=== PATIENT | female | born 1945 | race Caucasian/White ===

== ENCOUNTER 2020-12-28 08:39 | Outpatient (CLI) | payer MEDICARE, OTHER, SELFPAY ==
--- NOTE | ~2020-12-28 | XR_ITS ---
EXAMINATION: XR abdomen/kub 1V INDICATION: Microscopic hematuria TECHNIQUE: Supine views of the abdomen were obtained on 2 radiographs. COMPARISON: CT from today FINDINGS: Bowel contents project over the kidneys limiting sensitivity for renal stones. The known ri ght kidney stone demonstrated on CT and is not identified. The bowel gas pattern is normal. The lung bases are clear. IMPRESSION: 1. Unremarkable abdominal radiographs. Reviewed, dictated and finalized at location A.
--- NOTE | ~2020-12-28 | CT_ITS ---
EXAMINATION: CT abdomen pelvis wo/w con DATE: 12/28/2020 09:39 INDICATION: Microscopic hematuria TECHNIQUE: Computed tomography (CT) of the abdomen and pelvis was performed without intravenous contr ast. CT of the abdomen and pelvis was then performed with a total of 130 mL Omnipaque 350 intravenous contrast using a double-bolus technique for simultaneous opacification of the renal parenchyma and r enal collecting system. The dose-length product (DLP) was 1312.09 mGy-cm. Automated exposure control and iterative reconstruction technique were employed. COMPARISON: None FINDINGS: Calcified nodules of the right lower lobe are consistent with old granulomatous disease. Th e heart size is normal. The liver, spleen, gallbladder, and adrenal glands are normal. There is a 2.3 x 1.5 cm cystic lesion in the head of the pancreas. No definite internal solid or enhancing componen t is identified. No definite communication with the main pancreatic duct is identified. There is a 4 mm nonobstructing stone of the right kidney lower pole. No suspicious renal or urothelial lesion is i dentified. There is no hydronephrosis or hydroureter. There is an 8 mm proteinaceous cyst of the left mid kidney. The left ureter is not opacified beyond its midportion however no definite obstructing l esion is seen. The bladder is unremarkable. No pathologically enlarged abdominal or pelvic lymph node s are identified. There is no free intraperitoneal gas or evidence of bowel obstruction. A moderate v olume of colonic stool is present. There is mild lumbar spondylosis. IMPRESSION: 1. Nonobstructing right nephrolithiasis. 2. Nonopacification of the mid and distal left ureter without definite obstructing lesion identified of unclear significance. 3. 2.3 cm cystic lesion in the head of the pancreas. The differential diagnosis includes pseudocyst, intraductal papillary mucinous neoplasm (IPMN), mucinous cystic neoplasm (MCN), and the less common s erous cystadenoma and neuroendocrine tumor. Correlate for history of pancreatitis. Follow-up CT or MRI without and with contrast in six months is recommended. Reviewed, dictated and finalized at location A. IMPRESSION: 1. Nonobstructing right nephrolithiasis. 2. Nonopacification of the mid and distal left ureter without definite obstruct ing lesion identified of unclear significance. 3. 2.3 cm cystic lesion in the head of the pancreas. The differential diagnosis includes pseudocyst, intraductal papillary mucinous neoplasm (IPMN), mucinous cystic neoplasm (MCN), and the less common serous cystadenoma and neuroendocrin e tumor. Correlate for history of pancreatitis. Follow-up CT or MRI without and with contrast in six months is recommended.
[2020-12-28 09:13] LABS: Estimated Glomerular Filt Rate > 60
== END 2020-12-28 08:40 | disposition home or self-care (01) ==
LOC: ANHIMG 08:43
PROVIDERS: PCP Nurse Practitioner Family; Visit Provider Nurse Practitioner Adult Health
DX: R31.29 Other microscopic hematuria (principal); N20.0 Calculus of kidney; K86.2 Cyst of pancreas
CPT/HCPCS: 74018; 74178; Q9967

== ENCOUNTER 2021-07-14 09:40 | Outpatient (CLI) | payer MEDICARE, OTHER, SELFPAY ==
--- NOTE | ~2021-07-14 | MR_ITS ---
EXAMINATION: MR abdomen wo/w con DATE: 07/14/2021 10:57 INDICATION: Cyst of pancreas. TECHNIQUE: Magnetic resonance imaging (MRI) of the abdomen was performed without and with 14 mL Multi [place] intravenous contrast. COMPARISON: CT abdomen and pelvis 12/28/2020 FINDINGS: The liver, gallbladder, spleen, and adrenal glands are normal. The pancreatic duct is normal in calib er. There is cystic dilatation of multiple pancreatic duct sidechains. There is a 10 mm cystic lesion in the head of the pancreas abutting the common bile duct. There is a 2.5 cm cyst in the head of the pancreas that communicates with the pancreatic duct. The adrenal glands and left kidney are normal. There is a 2 mm cyst in right kidney. There are no dilated loops of bowel. There are no pathologicall y enlarged lymph nodes. There is no free intraperitoneal fluid. IMPRESSION: 1. Cystic lesions in the pancreas measuring up to 2.5 cm, stable from 12/28/2020. The differential di agnosis includes pseudocyst, intraductal papillary mucinous neoplasm (IPMN), mucinous cystic neoplasm (MCN), serous cystadenoma, and neuroendocrine tumor. Abdomen MRI without and with contrast is recomm ended in 6 months. Reviewed, dictated and finalized at location A. IMPRESSION: 1. Cystic lesions in the pancreas measuring up to 2.5 cm, stable from 1. The differential diagnosis includes pseudocyst, intraductal papillary mucino us neoplasm (IPMN), mucinous cystic neoplasm (MCN), serous cystadenoma, and philippe roendocrine tumor. Abdomen MRI without and with contrast is recommended in 6 mo nths.
[2021-07-14 10:13] LABS: Estimated Glomerular Filt Rate > 60
== END 2021-07-14 09:41 | disposition home or self-care (01) ==
PROVIDERS: PCP Nurse Practitioner Family; Visit Provider Nurse Practitioner Family
DX: K86.2 Cyst of pancreas (principal); N28.1 Cyst of kidney, acquired
CPT/HCPCS: 74183; A9577

== ENCOUNTER 2022-05-18 10:27 | Outpatient (CLI) | payer MEDICARE, OTHER, SELFPAY ==
--- NOTE | ~2022-05-18 | MR_ITS ---
EXAMINATION: MR MRCP wo/w con/w 3D wo ind DATE: 05/18/2022 11:36 INDICATION: Pancreatic cyst TECHNIQUE: Magnetic resonance imaging (MRI) of the abdomen was performed without and with 14 mL Multi [place] intravenous contrast. Sequences included coronal T2-weighted SS-FSE, coronal T2-weighted FS SS- FSE, coronal T2-weighted FS FIESTA, axial T2-weighted FS FIESTA, axial T2-weighted FIESTA, sagittal T 2-weighted SS-FSE, axial T1-weighted dual-echo FSPGR, axial T2-weighted SS-FSE, axial T1-weighted LAV A, axial T2-weighted STIR FSE. Thick-slab T2-weighted FRFSE-XL images were obtained for magnetic reso nance cholangiopancreatography (MRCP). Rotating maximum intensity projection 3-D reconstructions of t he volumetric data were created by the technologist. Postcontrast sequences included a time course of axial T1-weighted LAVA. COMPARISON: 07/14/2021 FINDINGS: ABDOMEN MRI: Heart size is normal. No pericardial or pleural effusion. Liver, gallbladder, spleen, bilateral adren al glands and right kidney are normal. 6 mm nonenhancing T2 hyperintense left renal cyst. No interval change in the lobulated 2.5 cm cyst in the head of the pancreas are smaller 1 cm more posterior cyst also at the head of the pancreas. No solid enhancing soft tissue component such with either cyst. Pa ncreas is otherwise unremarkable. Visualized portion of the bowels are normal with no obstruction. No pathologically enlarged abdominal or upper pelvic lymphadenopathy. Bones are unremarkable with dawson l marrow signal throughout. ABDOMEN MRCP: No intrahepatic biliary ductal dilation. The common bile duct measures up to 4 mm maximal diameter at the proximal duct which is normal and which tapers distally with no evident mucosal irregularities o r choledocholithiasis. The smaller more posterior cyst abuts and may be contiguous with the distal co mmon bile duct. The larger cyst appears contiguous with the main pancreatic duct. There are few tiny dilated pancreatic ductal side branches at the neck and body of the pancreas suggesting sequela of ch ronic pancreatitis. IMPRESSION: 1. No interval change in a couple 2.5 cm and 1 cm simple appearing cystic lesions at the head of the pancreas with no concerning enhancing soft tissue component. The differential diagnosis includes pseu docyst, intraductal papillary mucinous neoplasm (IPMN), mucinous cystic neoplasm (MCN), and the less common serous cystadenoma and neuroendocrine tumor. Recommend additional 6 month follow-up pre and po stcontrast MRI. Reviewed, dictated and finalized at location L. IMPRESSION: 1. No interval change in a couple 2.5 cm and 1 cm simple appearing cystic lesio ns at the head of the pancreas with no concerning enhancing soft tissue compone nt. The differential diagnosis includes pseudocyst, intraductal papillary mucin ous neoplasm (IPMN), mucinous cystic neoplasm (MCN), and the less common serous cystadenoma and neuroendocrine tumor. Recommend additional 6 month follow-up p re and postcontrast MRI.
== END 2022-05-18 10:28 | disposition home or self-care (01) ==
LOC: ANHIMG 10:34
PROVIDERS: PCP Nurse Practitioner Family; Visit Provider Internal Medicine Hematology & Oncology
DX: K86.2 Cyst of pancreas (principal)
CPT/HCPCS: 74183; 76376; A9577

== ENCOUNTER 2022-07-21 12:32 | Outpatient (CLI) | payer MEDICARE, OTHER, SELFPAY ==
--- NOTE | 2022-07-21 | ECHO_ITS ---
Patient Info Name: Keyla eD La Torre Age: 76 years : 1945 Gender: Female Ht: 63 in Wt: 155 lbs BSA: 1.79 m2 HR: 69 bpm BP: 179 / 81 mmHg Heart Rhythm: Sinus Rhythm Technical Quality: Good Exam Date: 07/21/2022 12:54 PM Exam Location: [facility] Patient Status: Outpatient Admit Date: 07/21/2022 Staff Ordering Physician: Mario, Debbie Mccollum APRN Rig Operator: Juanis Hawthorne RDCS Attending Provider: Mario, Debbie Mccollum APRN Referring Physician: Mario CANALES; Exam Type: CA echo doppler color flow Study Info Indications R01.1 - Cardiac murmur, unspecified Complete two-dimensional, color flow and Doppler transthoracic echocardiogram is performed. Summary 1. Complete two-dimensional, color flow and Doppler transthoracic echocardiogram is performed. 2. Left ventricular chamber dimension is normal. 3. Left ventricular systolic function is normal, estimated at 65-70%. 4. The left ventricular diastolic function is grade I diastolic dysfunction. 5. E/e' 9 is minimally elevated. 6. Left atrial chamber dimension is mildly enlarged. 7. The mitral valve has moderately calcified annulus. 8. There is trace mitral valve regurgitation. 9. There is trace tricuspid valve regurgitation. 10. No pulmonary hypertension, estimated pulmonary arterial systolic pressure is 39 mmHg. Left Ventricle E/e' 9 is minimally elevated. Left ventricular chamber dimension is normal. Left ventricular systolic function is normal, estimated at 65-70%. The left ventricular diastolic function is grade I diastolic dysfunction. Right Ventricle Right ventricular systolic function is normal and with normal TAPSE 2.5 cm. Right ventricular chamber dimension is normal. Left Atria Left atrial chamber dimension is mildly enlarged. Right Atria Right atrial chamber dimension is normal. Aortic Valve The aortic valve is trileaflet. There is no aortic valve stenosis. There is no aortic valve regurgitation. Pulmonic Valve There is no pulmonic regurgitation. Mitral Valve The mitral valve has moderately calcified annulus. There is no mitral valve stenosis. There is trace mitral valve regurgitation. Tricuspid Valve There is trace tricuspid valve regurgitation. No pulmonary hypertension, estimated pulmonary arterial systolic pressure is 39 mmHg. Pericardium/Pleural There is no pericardial effusion. Inferior Vena Cava Normal inferior vena cava with >50% collapse upon inspiration consistent with normal right atrial pressure, 5 mmHg. Aorta The aortic root size at the sinus of Valsalva is normal. Left Ventricular Outflow Tract Name Value Normal LVOT 2D LVOT Diameter 1.8 cm LVOT Doppler LVOT Peak Gradient 6 mmHg LVOT Mean Gradient 2 mmHg LVOT VTI 31 cm LVOT VTI/AV VTI Ratio 0.8 LVOT Stroke Volume 80 ml LVOT CO 4.3 l/min LVOT CI 2.4 l/min/m2 Pulmonic Valve Name Value Normal
== END 2022-07-21 12:33 | disposition home or self-care (01) ==
PROVIDERS: PCP Nurse Practitioner Family; Visit Provider Nurse Practitioner Family
DX: R01.1 Cardiac murmur, unspecified (principal)
CPT/HCPCS: 93306

== ENCOUNTER 2022-12-05 08:39 | Outpatient (CLI) | payer MEDICARE, OTHER, SELFPAY ==
--- NOTE | ~2022-12-05 | MR_ITS ---
EXAMINATION: MR MRCP wo/w con/w 3D wo ind DATE: 12/05/2022 09:49 INDICATION: Pancreatic cyst. TECHNIQUE: Magnetic resonance imaging (MRI) of the abdomen was performed without and with 14 mL Multi [place] intravenous contrast. Sequences included coronal T2-weighted FS FSE, coronal T2-weighted FSE, a xial T1-weighted LAVA, coronal FS FIESTA, axial dual-echo T1-weighted SPGR, coronal lava-FLEX, sagitt al T2-weighted FSE, axial T2-weighted FSE, and axial DWI. Thick-slab T2-weighted FSE images were obta ined for magnetic resonance cholangiopancreatography (MRCP). Maximum intensity projection 3-D reconst ructions of the volumetric data were created by the technologist. Postcontrast sequences included cor onal LAVA-flex and time course of axial T1-weighted LAVA. COMPARISON: Abdomen MRI 05/18/2022, 07/14/2021, CT abdomen and pelvis 12/28/2020 FINDINGS: ABDOMEN MRI: The liver, gallbladder, spleen, adrenal glands, and left kidney are normal. There is a 4 mm cyst in right kidney. In the head of the pancreas, there is a 2.4 cm cystic lesion that communica tucker with the main pancreatic duct. The main pancreatic duct is normal in caliber. In the pancreas, there is a 10 mm cystic lesion without visible communication with the main pancreati c duct. There are no dilated loops of bowel. There are no pathologically enlarged lymph nodes. There is no free intraperitoneal fluid. ABDOMEN MRCP: The common duct is normal and measures 4 mm. IMPRESSION: 1. Cystic lesions of the pancreas measuring up to 2.4 cm without high-risk features, stable from 07/14. The differential diagnosis includes pseudocyst, intraductal papillary mucinous neoplasm (IPMN) , mucinous cystic neoplasm (MCN), serous cystadenoma, and neuroendocrine tumor. Abdomen MRI without a nd with contrast is recommended in 6 months. Reviewed, dictated and finalized at location E. IMPRESSION: 1. Cystic lesions of the pancreas measuring up to 2.4 cm without high-risk feat ures, stable from 07/14/2021. The differential diagnosis includes pseudocyst, in traductal papillary mucinous neoplasm (IPMN), mucinous cystic neoplasm (MCN), s erous cystadenoma, and neuroendocrine tumor. Abdomen MRI without and with contr ast is recommended in 6 months.
== END 2022-12-05 08:40 | disposition home or self-care (01) ==
PROVIDERS: PCP Nurse Practitioner Family; Visit Provider Internal Medicine Hematology & Oncology
DX: K86.2 Cyst of pancreas (principal)
CPT/HCPCS: 74183; 76376; A9577

== ENCOUNTER 2023-09-10 09:26 | Outpatient (CLI) | payer MEDICARE, OTHER, SELFPAY ==
[2023-09-10 09:46] LABS: Basophils Percent Auto 0.8 % (0.2-1.2); Eosinophils Absolute Auto 0.1 K/mm3 (0-0.3); Eosinophils Percent Auto 1.2 % (0-4.4); Hematocrit 40.5 % (37.0-47.0); Hemoglobin 13.5 g/dL (12.0-15.0); Immature Granulocyte Absolute 0.01 K/mm3 (0.00-0.031); Immature Granulocyte Percent A 0.2 % (0-0.5); Lymphocytes Absolute Auto 1.13 K/mm3 (0.9-3.2); Lymphocytes Percent Auto 22.6 % (18.3-44.2); Mean Corpuscular HGB Conc 33.3 g/dl (32-36); Mean Corpuscular Hemoglobin 29.7 pg (26-34); Mean Corpuscular Volume 89.2 fl (80-100); Mean Platelet Volume 10.2 fl (7.4-10.4); Monocytes Absolute Auto 0.3 K/mm3 (0.1-0.6); Monocytes Percent Auto 6.8 % (2.6-8.5); Neutrophils Absolute Auto 3.4 K/mm3 (1.3-6.7); Neutrophils Percent Auto 68.4 % (45.5-73.1); Platelet Count Result 275 k/mm3 (150-375); Red Blood Count 4.54 M/mm3 (4.2-5.4)
[2023-09-10 09:51] LABS: Blood Urea Nitrogen 18 mg/dL (8-26); Carbon Dioxide 28 mmol/L (22-30); Chloride 102 mmol/L (98-109); Estimated Glomerular Filt Rate > 60; Glucose 108 mg/dL (70-105); Ionized Calcium (POC) 1.17 mmol/L (1.11-1.31); Potassium 4.1 mmol/L (3.5-4.9); Sodium 140 mmol/L (138-146)
[2023-09-10 10:39] LABS: Alanine Aminotransferase 22 U/L (6-35); Albumin Level 4.6 g/dL (3.5-5.1); Alkaline Phosphatase 91 U/L (38-126); Anion Gap 12 mmol/L (4-12); Aspartate Amino Transferase 27 U/L (14-36); Bilirubin,Total 0.6 mg/dL (0.2-1.3); Blood Urea Nitrogen 17 mg/dL (7-17); Calcium 9.7 mg/dL (8.4-10.2); Carbon Dioxide 27 mmol/L (22-30); Chloride 100 mmol/L (98-107); Estimated Glomerular Filt Rate > 60; Glucose 102 mg/dL (65-110); Potassium 4.2 mmol/L (3.4-5.0); Sodium 139 mmol/L (137-145)
== END 2023-09-10 09:27 | disposition home or self-care (01) ==
LOC: ANHLAB 09:29
PROVIDERS: PCP Nurse Practitioner Family; Visit Provider Internal Medicine Hematology & Oncology
DX: K86.2 Cyst of pancreas (principal)
CPT/HCPCS: 36415; 80047; 80053; 85025

== ENCOUNTER 2024-04-17 13:40 | Outpatient (CLI) | payer MEDICARE, OTHER, SELFPAY ==
--- NOTE | ~2024-04-17 | MM_ITS ---
EXAMINATION: MM screening isabel BI w yrn HISTORY: Screening TECHNIQUE: Craniocaudal and mediolateral oblique 3-D tomosynthesis images were obtained and synthetic 2-D images were generated. CAD analysis was submitted and interpreted. COMPARISON: Comparison to multiple prior studies sequentially, with oldest reviewed study dated 12/03. BREAST PARENCHYMAL COMPOSITION: Not dense: There are scattered areas of fibroglandular density. FINDINGS: There is no evidence of suspicious mass, calcification, or architectural distortion to sugg est malignancy in either breast. There has been no suspicious interval change. IMPRESSION: 1. No mammographic evidence of malignancy. 2. Recommend routine screening mammography in one year. BI-RADS Category 1: Negative Reviewed, dictated and finalized at location B. [employer]
--- OUTSIDE RECORDS SUMMARY | 2024-04-17 13:44 | XMS_ITS | Data Portability ---
Author Organization [place] [employer], Main Office Address [address] [place] [address] Assessment Encounter Date Assessment Date Assessment LastModified by Organization Details LastModified Time 06/21/2022 06/21/2022 Cscope- 01/2021- tubular adenoma- repeat 01/2026 Mammogram- 12/2021 DEXA- 12/2020-osteopen ia [employer]- no longer doing 2/2 age Call office if worse, ER if life threatening illness RTC 4 months She voices understanding of plan and agrees [email or web address] Not available 06/17/2022 12:39:11 11/15/2022 11/15/2022 Cscope- 01/2021- tubular adenoma- repeat 01/2026 Mammogram- 12/2021 DEXA- 12/2020-osteopen ia [employer]- no longer doing 2/2 age Call office if worse, ER if life threatening illness RTC 4 months She voices understanding of plan and agrees [email or web address] Not available 11/15/2022 11:07:17 Plan of Treatment Reminders Order Date Submit Date Provider Last Modified By Organization Details Last Modified Time Details Appointments Any 15 2024 09:30A M Shaina Santos APRN Not available Not available Not available Lab hepatitis C virus Ab, serum 2023 024 TAMELA Not available 01/14/2024 16:02:12 CBC w/ auto diff 2023 024 TAMELA Not available 06/25/2023 22:41:27 CMP, serum or plasma 2023 024 TAMELA Not available 06/25/2023 22:41:27 TSH, serum or plasma 2023 024 TAMELA Not available 06/25/2023 22:41:27 T4, free, serum 2023 024 TAMELA Not available 06/25/2023 22:41:27 HbA1c (hemoglob in A1c), blood 2023 024 TAMELA Not available 06/25/2023 22:41:27 vitamin D, 25-hydrox y, total, serum 2023 024 TAMELA Not available 06/25/2023 22:41:28 vitamin B12 + folate, serum or blood 2023 024 TAMELA Not available 06/25/2023 22:41:28 lipid panel, serum 2023 024 TAMELA Not available 06/25/2023 22:41:28 CMP, serum or plasma 2022 023 TAMELA Not available 07/05/2022 14:05:22 CBC w/ auto diff 2022 023 TAMELA Not available 07/05/2022 12:55:15 urinalysi s complete, reflex culture 2022 023 Not available 07/06/2022 11:27:22 vitamin D, 25-hydrox y, total, serum 2022 023 Not available 07/06/2022 11:27:23 lipid panel, serum 2022 023 TAMELA Not available 07/13/2022 16:37:44 TSH, serum, reflex free T4 2022 023 Not available 07/06/2022 11:27:23 Referral None recorded. Procedures None recorded. Surgeries None recorded. Imaging MAMMO, screening , bilateral - due in December 20222022 023 Not available 03/14/2023 08:59:21 US, echocardi ogram 2022 023 [facility] (Cardiology [facility], [place], [address], 07/21/2022 16:32:55 Medication Orders enalapril maleate 10 mg tablet 2023 [id number], [address], [place], [place], [id number], 12/19/2023 10:59:13 hydrochlo rothiazid e 12.5 mg tablet 2023 [facility] #93154, [address], [place], [place], [id number], 12/19/2023 10:59:12 pravastat in 20 mg tablet 2023 [facility] #61535, [address], [place], [place], [id number], 12/19/2023 10:59:12 pravastat in 20 mg tablet 2023 024 [facility] #60023, [address], [place], [place], [id number], 06/13/2023 11:09:36 hydrochlo rothiazid e 12.5 mg tablet 2023 [facility] #56453, [address], [place], [place], [id number], 06/13/2023 11:09:36 enalapril maleate 10 mg tablet 2023 024 [facility] #12656, [address], [place], [place], [id number], 06/13/2023 11:09:38 lorazepam 0.5 mg tablet 2022 [email or web address] [address], [place], [place], [id number], 12/19/2023 10:34:03 Patient TargetsNo targets recorded. Patient Instructions Encounter Date Encounter Id Patient Instructions Last Modified By Organization Details Last Modified Time 11/15/2022 [id number] dementia rating scale-2* [email or web address] Not available 11/15/2022 13:20:40 depression screening* [email or web address] Not available 11/15/2022 13:20:40 multi-dimensiona l health assessment questionnaire* [email or web address] Not available 11/15/2022 13:20:40 advance directiv es: care instructions [email or web address] Not available 11/15/2022 13:20:40 advance care planning: care instructions [email or web address] Not available 11/15/2022 13:20:40 [place] Advance Directives [email or web address] Not available 11/15/2022 13:20:40 Personalized a lt Plan and Screening Recommendations Advance Directives - Do you have one? No You have indicated that you are capable of preparing your advance care directive Advance Directives - Do we have your advance directive on file in your health record? No, please bring in a copy at your earliest convenience Primary Prevention/Interven tion (prevents or decreases the chance of common diseases from occurring) Smoking Risk: Non Smoker Alcohol Misuse Screening: Negative Weight: Appropriate Physical activity: Appropriate physical activity minimum of 10-20 minutes of activity that causes mild breathlessness/day minimum of 20-30 minutes activity that causes mild breathlessness/day minimum of 30-40 minutes of activity that causes mild breathlessness/day Nutrition: Good Average Refer to attached handout Heart-Healthy Diet: After Your Visit Fall Risk (screened today): Low Refer to attached handout Preventing Falls: After your Visit Vaccines Pneumococcal: Ordered Recommended today Recommended today, but you have declined No further needed Influenza: Your next one in the fall of this year Chronic Disease Risks Stroke: Low Risk Intermediate Risk Heart Attack: Low risk Intermediate Risk Clogging of the Arteries: Low risk Intermediate Risk Diabetes: Low Risk Secondary Prevention/Interven tion (detects treatable diseases before they may cause symptoms, disability, or ) Breast Cancer Screening with mammogram: Your next mammogram: Ordered Cervical/Uterine/Ov sherita Cancer Screening: No screening necessary Osteoporosis Screening: Date Screening Last Performed: Colon Cancer Screening: Colonoscopy Date Screening Last Performed: Eye Disease Screening: Ordered Recommended today Dementia Risk: Low Depression Screening: Negative [email or web address] Not available 11/15/2022 13:20:38 06/13/2023 [id number] Follow up in 6 months Labs ordered Medication refills sent to pharmacy Not available 06/13/2023 11:09:22 12/19/2023 [id number] dementia rating scale-2* Not available 12/19/2023 10:59:05 multi-dimensiona l health assessment questionnaire* Not available 12/19/2023 10:59:06 care plan* Not available 12/18 10:59:06 advance directiv es: care instructions Not available 12/19/2023 10:59:06 advance care planning: care instructions Not available 12/19/2023 10:59:05 [place] Advance Directives Not available 12/19/2023 10:59:06 Follow up in 6 months Prescriptions sent to pharmacy Obtain lab Tests: Referral: Recommend: Tetanus vaccine Shingles vaccine Personalized Health Plan and Screening Recommendations Advance Directives - Do you have one? Yes Advance Directives - Do we have your advance directive on file in your health record? No, please bring in a copy at your earliest convenience Primary Prevention/Interven tion (prevents or decreases the chance of common diseases from occurring) Smoking Risk: Non Smoker Alcohol Misuse Screening: Negative Weight: Appropriate Overwei ght continue your current weight loss efforts try to lose 5% of your body weight try to lose 10% of your body weight Physical activity: Appropriate physical activity minimum of 10-20 minutes of activity that causes mild breathlessness/day minimum of 20-30 minutes activity that causes mild breathlessness/day Nutrition: Good Refer to attached handout Heart-Healthy Diet: After Your Visit Refer to attached handout DASH Diet: After Your Visit Fall Risk (screened today): Low Refer to attached handout Preventing Falls: After your Visit Vaccines Pneumococcal: Ordered Recommended today Recommended today, but you have declined No further needed Influenza: Ordered Chronic Disease Risks Stroke: Low Risk I have no recommendations Heart Attack: Low risk I have no recommendations Clogging of the Arteries: Low risk I have no recommendations Diabetes: Low Risk I have no recommendations Secondary Prevention/Interven tion (detects treatable diseases before they may cause symptoms, disability, or ) Breast Cancer Screening with mammogram: Cervical/Uterine/Ov sherita Cancer Screening: Your next PAP/pelvic in: 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 Results Created Date Observation Date Name Description Value Unit Range Abnormal Flag Note LastModifiedBy Organization Detail LastModifiedTime 07/06/1907/05/2022 CBC/C OMPLE TE BLD COUNT W/DIF F white blood cells 4.2 x10'3 /uL 4.2-10 .8 Not Available [facility] (Lab) [address] [place], [address], 07/05/2022 12:55:15 07/06/1907/05/2022 CBC/C OMPLE TE BLD COUNT W/DIF F red blood cells 4.39 x10'6 /uL 3.80-5 .20 Not Available [facility] (Lab) [address] [place], [address], 07/05/2022 12:55:15 07/06/1907/05/2022 CBC/C OMPLE TE BLD COUNT W/DIF F hemoglobin 13.1 g/dL 12.0-1 5.6 Not Available [facility] (Lab) [address] [place], [address], 07/05/2022 12:55:15 07/06/1907/05/2022 CBC/C OMPLE TE BLD COUNT W/DIF F hematocrit 40.0 % 35.7-4 5.7 Not Available [facility] (Lab) [address] [place], [address], 07/05/2022 12:55:15 07/06/19 23 07/05/2022 CBC/C OMPLE TE BLD COUNT W/DIF F mean red cell volume 91.1 fL 82.0-9 9.0 Not Available [facility] (Lab) [address] [place], [address], 07/05/2022 12:55:15 07/06/19 23 07/05/2022 CBC/C OMPLE TE BLD COUNT W/DIF F mean red cell hemoglobin 29.8 pg 27.0-3 3.0 Not Available [facility] (Lab) [address] [place], [address], 07/05/2022 12:55:15 07/06/19 23 07/05/2022 CBC/C OMPLE TE BLD COUNT W/DIF F mean RBC HGB concentratio n 32.8 g/dL 31.0-3 6.0 Not Available [facility] (Lab) [address] [place], [address], 07/05/2022 12:55:15 07/06/19 23 07/05/2022 CBC/C OMPLE TE BLD COUNT W/DIF F red cell distribution width 12.7 % 11.8-1 5.5 Not Available [facility] (Lab) [address] [place], [address], 07/05/2022 12:55:15 07/06/19 23 07/05/2022 CBC/C OMPLE TE BLD COUNT W/DIF F platelets 269 x10'3 /uL 150-40 0 Not Available [facility] (Lab) [address] [place], [address], 07/05/2022 12:55:15 07/06/19 23 07/05/2022 CBC/C OMPLE TE BLD COUNT W/DIF F mean platelet volume 10.9 fL 9.0-12 .4 Not Available [facility] (Lab) [address] [place], [address], 07/05/2022 12:55:15 07/06/1907/05/2022 CBC/C OMPLE TE BLD COUNT W/DIF F neutrophils 65.6 % 39.0-7 2.0 Not Available [facility] (Lab) [address] [place], [address], 07/05/2022 12:55:15 07/06/1907/05/2022 CBC/C OMPLE TE BLD COUNT W/DIF F lymphocytes 24.6 % 16.0-4 7.0 Not Available [facility] (Lab) [address] [place], [address], 07/05/2022 12:55:15 07/06/1907/05/2022 CBC/C OMPLE TE BLD COUNT W/DIF F monocytes 7.2 % 5.0-12 .0 Not Available [facility] (Lab) [address] [place], [address], 07/05/2022 12:55:15 07/06/1907/05/2022 CBC/C OMPLE TE BLD COUNT W/DIF F eosinophils 1.7 % 1.0-7. 0 Not Available [facility] (Lab) [address] [place], [address], 07/05/2022 12:55:15 07/06/1907/05/2022 CBC/C OMPLE TE BLD COUNT W/DIF F basophils 0.7 % 0.0-2. 0 Not Available [facility] (Lab) [address] [place], [address], 07/05/2022 12:55:15 07/06/1907/05/2022 CBC/C OMPLE TE BLD COUNT W/DIF F immature granulocytes 0.2 % 0.00-0 .50 Not Available [facility] (Lab) [address] [place], [address], 07/05/2022 12:55:15 07/06/19 23 07/05/2022 CBC/C OMPLE TE BLD COUNT W/DIF F neutrophils, absolute count 2.75 x10'3 /uL 1.5-8. 0 Not Available [facility] (Lab) [address] [place], [address], 07/05/2022 12:55:15 07/06/19 23 07/05/2022 CBC/C OMPLE TE BLD COUNT W/DIF F lymphocytes, absolute count 1.03 x10'3 /uL 1.07-3 .43 low Not Available [facility] (Lab) [address] [place], [address], 07/05/2022 12:55:15 07/06/19 23 07/05/2022 CBC/C OMPLE TE BLD COUNT W/DIF F monocytes, absolute count 0.30 x10'3 /uL 0.29-0 .99 Not Available [facility] (Lab) [address] [place], [address], 07/05/2022 12:55:15 07/06/1907/05/2022 CBC/C OMPLE TE BLD COUNT W/DIF F eosinophils, absolute count 0.07 x10'3 /uL 0.02-0 .53 Not Available [facility] (Lab) [address] [place], [address], 07/05/2022 12:55:15 07/06/19 23 07/05/2022 CBC/C OMPLE TE BLD COUNT W/DIF F basophils, absolute count 0.03 x10'3 /uL 0.01-0 .08 Not Available [facility] (Lab) [address] [place], [address], 07/05/2022 12:55:15 07/06/19 23 07/05/2022 CBC/C OMPLE TE BLD COUNT W/DIF F immature granulocytes ,absolute 0.01 x10'3 /uL 0.00-0 .05 Not Available [facility] (Lab) [address] [place], [address], 07/05/2022 12:55:15 07/06/19 23 07/05/2022 CBC/C OMPLE TE BLD COUNT W/DIF F nucleated red blood cells 0.0 % -0 Not Available [facility] (Lab) [address] [place], [address], 07/05/2022 12:55:15 07/06/19 23 07/05/2022 CBC/C OMPLE TE BLD COUNT W/DIF F NRBC# 0.00 x10'3 /uL Not Available [facility] (Lab) [address] [place], [address], 07/05/2022 12:55:15 07/06/19 23 07/05/2022 URINA LYSIS COMPL ETE/I RIS W/RFX color COLORL ESS Not Available [facility] (Lab) [address] [place], [address], 07/05/2022 13:06:11 07/06/19 23 07/05/2022 URINA LYSIS COMPL ETE/I RIS W/RFX appear CLEAR Not Available [facility] (Lab) [address] [place], [address], 07/05/2022 13:06:11 07/06/1907/05/2022 URINA LYSIS COMPL ETE/I RIS W/RFX specific gravity 1.006 1.001- 1.030 Not Available [facility] (Lab) [address] [place], [address], 07/05/2022 13:06:11 07/06/19 23 07/05/2022 URINA LYSIS COMPL ETE/I RIS W/RFX pH 5.5 pH_un its 5.0-9. 0 Not Available [facility] (Lab) [address] [place], [address], 07/05/2022 13:06:11 07/06/19 23 07/05/2022 URINA LYSIS COMPL ETE/I RIS W/RFX leukocytes NEGATI VE mami/u L negati ve- Not Available [facility] (Lab) [address] [place], [address], 07/05/2022 13:06:11 07/06/19 23 07/05/2022 URINA LYSIS COMPL ETE/I RIS W/RFX nitrite NEGATI VE negati ve- Not Available [facility] (Lab) [address] [place], [address], 07/05/2022 13:06:11 07/06/19 23 07/05/2022 URINA LYSIS COMPL ETE/I RIS W/RFX protein NEGATI VE mg/dL negati ve- Not Available [facility] (Lab) [address] [place], [address], 07/05/2022 13:06:11 07/06/19 23 07/05/2022 URINA LYSIS COMPL ETE/I RIS W/RFX glucose NORMAL mg/dL normal - Not Available [facility] (Lab) [address] [place], [address], 07/05/2022 13:06:11 07/06/19 23 07/05/2022 URINA LYSIS COMPL ETE/I RIS W/RFX ketones NEGATI VE mg/dL negati ve- Not Available [facility] (Lab) [address] [place], [address], 07/05/2022 13:06:11 07/06/19 23 07/05/2022 URINA LYSIS COMPL ETE/I RIS W/RFX urobilinogen NORMAL mg/dL normal - Not Available [facility] (Lab) [address] [place], [address], 07/05/2022 13:06:11 07/06/19 23 07/05/2022 URINA LYSIS COMPL ETE/I RIS W/RFX bilirubin NEGATI VE mg/dL negati ve- Not Available [facility] (Lab) [address] [place], [address], 07/05/2022 13:06:11 07/06/19 23 07/05/2022 URINA LYSIS COMPL ETE/I RIS W/RFX blood NEGATI VE mg/dL negati ve- Not Available [facility] (Lab) [address] [place], [address], 07/05/2022 13:06:11 07/06/19 23 07/05/2022 URINA LYSIS COMPL ETE/I RIS W/RFX white blood cells 0-8 /i??h pfi?? 0-8 Not Available [facility] (Lab) [address] [place], [address], 07/05/2022 13:06:11 07/06/19 23 07/05/2022 URINA LYSIS COMPL ETE/I RIS W/RFX red blood cells 0-4 /i??h pfi?? 0-4 Not Available [facility] (Lab) [address] [place], [address], 07/05/2022 13:06:11 07/06/19 23 07/05/2022 URINA LYSIS COMPL ETE/I RIS W/RFX bacteria OCCASI ONAL abnormal Not Available [facility] (Lab) [address] [place], [address], 07/05/2022 13:06:11 07/06/19 23 07/05/2022 URINA LYSIS COMPL ETE/I RIS W/RFX mucous OCCASI ONAL /i??l pfi?? abnormal Not Available [facility] (Lab) [address] [place], [address], 07/05/2022 13:06:11 07/06/19 23 07/05/2022 URINA LYSIS COMPL ETE/I RIS W/RFX squamous epithelial FEW /i??l pfi?? abnormal Not Available [facility] (Lab) [address] [place], [address], 07/05/2022 13:06:11 07/06/19 23 07/05/2022 COMPR EHENS GALE METAB OLIC PANEL sodium 134 mmol/ L 137-14 5 low Not Available [facility] (Lab) [address] [place], [address], 07/05/2022 14:05:28 07/06/19 23 07/05/2022 COMPR EHENS GALE METAB OLIC PANEL potassium 3.9 mmol/ L 3.5-5. 1 Not Available [facility] (Lab) [address] [place], [address], 07/05/2022 14:05:28 07/06/19 23 07/05/2022 COMPR EHENS GALE METAB OLIC PANEL chloride 99 mmol/ L 98-107 Not Available [facility] (Lab) [address] [place], [address], 07/05/2022 14:05:28 07/06/19 23 07/05/2022 COMPR EHENS GALE METAB OLIC PANEL carbon dioxide 28 mmol/ L 22-30 Not Available [facility] (Lab) [address] [place], [address], 07/05/2022 14:05:28 07/06/19 23 07/05/2022 COMPR EHENS GALE METAB OLIC PANEL anion gap 10.9 mmol/ L 14-22 low Not Available [facility] (Lab) [address] [place], [address], 07/05/2022 14:05:28 07/06/19 23 07/05/2022 COMPR EHENS GALE METAB OLIC PANEL glucose 105 mg/dL 70-99 high Not Available [facility] (Lab) [address] [place], [address], 07/05/2022 14:05:28 07/06/19 23 07/05/2022 COMPR EHENS GALE METAB OLIC PANEL BUN 15 mg/dL 8-19 Not Available [facility] (Lab) [address] [place], [address], 07/05/2022 14:05:28 07/06/19 23 07/05/2022 COMPR EHENS GALE METAB OLIC PANEL creatinine 0.63 mg/dL 0.66-1 .25 low Not Available [facility] (Lab) [address] [place], [address], 07/05/2022 14:05:28 07/06/19 23 07/05/2022 COMPR EHENS GALE METAB OLIC PANEL GFR >60 Refer ence Range : [place] ge GFR Healt hy Adult : >60 mL/mi n/1.7 3 m2 Chron ic Kidne y Disea se: 15-60 mL/mi n/1.7 3 m2 Kidne y Failu re: <15/m L/min /1.73 m2 www.n iddk. nih.g ov The MDRD study equat ion has not been valid ated in child david <18 years of age; pregn ant women ; the elder ly >85 years of age; or in some racia l or ethni c subgr oups, such as [facility] nics. Outsi de the valid ated rudi eters , estim ated GFR is less accur ate, requi ring clini elisha judgm ent on a case- by-ca se basis . Clini elisha inter preta tion for other races and ages must be made by the clini brody. The MDRD study equat ion has not been valid ated for the evalu ation of serum creat inine relat ed to nutri armando l statu s or medic ation usage . For perso ns <18 years of age, a pedia tric GFR calcu lator is avail able on the [facility] websi te: https ://demian posadas.oracio raymond/pr ofess ional s/kdo qi/gf r_cal culat or Not Available [facility] (Lab) [address] [facility] [place], [address], 07/05/2022 14:05:28 07/06/19 23 07/05/2022 COMPR EHENS GALE METAB OLIC PANEL alkaline phosphatase 89 U/L 38-126 Not Available [facility] (Lab) [address] [place], [address], 07/05/2022 14:05:28 07/06/19 23 07/05/2022 COMPR EHENS GALE METAB OLIC PANEL alanine aminotransfe rase 24 U/L 0-35 Not Available [facility] (Lab) [address] [place], [address], 07/05/2022 14:05:28 07/06/19 23 07/05/2022 COMPR EHENS GALE METAB OLIC PANEL aspartate aminotransfe rase 30 U/L 15-37 Not Available [facility] (Lab) [address] [place], [address], 07/05/2022 14:05:28 07/06/19 23 07/05/2022 COMPR EHENS GALE METAB OLIC PANEL bilirubin, total 0.50 mg/dL 0.20-1 .30 Not Available [facility] (Lab) [address] [place], [address], 07/05/2022 14:05:28 07/06/19 23 07/05/2022 COMPR EHENS GALE METAB OLIC PANEL calcium 9.3 mg/dL 8.4-10 .2 Not Available [facility] (Lab) [address] [place], [address], 07/05/2022 14:05:28 07/06/19 23 07/05/2022 COMPR EHENS GALE METAB OLIC PANEL total protein 6.8 g/dL 6.3-8. 2 Not Available [facility] (Lab) [address] [place], [address], 07/05/2022 14:05:28 07/06/19 23 07/05/2022 COMPR EHENS GALE METAB OLIC PANEL albumin 4.4 g/dL 3.0-4. 4 Not Available [facility] (Lab) [address] [place], [address], 07/05/2022 14:05:28 07/06/19 23 07/05/2022 COMPR EHENS GALE METAB OLIC PANEL globulin 2.4 g/dL 2.6-4. 2 low Not Available [facility] (Lab) [address] [place], [address], 07/05/2022 14:05:28 07/06/19 23 07/05/2022 COMPR EHENS GALE METAB OLIC PANEL A/G ratio 1.8 ratio 1.0-2. 0 Not Available [facility] (Lab) [address] [place], [address], 07/05/2022 14:05:28 07/06/19 23 07/05/2022 TSH W/REF KIMI FT4 TSH with reflex free T4 1.930 uIU/m L 0.465- 4.680 Not Available [facility] (Lab) [address] [place], [address], 07/05/2022 14:13:40 07/06/19 23 07/05/2022 VITAM IN D 25-HY DROXY vd25oh 45.7 NG/mL 30-100 Vitam in D Statu s: Defic ient: <20 ng/mL Insuf ficie nt: 20-29 ng/mL Suffi cient : 30-10 0 ng/mL Not Available [facility] (Lab) [address] [place], [address], 07/05/2022 14:22:30 12/29/19 22 MAMMO , scree ce, digit al, bilat eral [facility] [address] [place] [address] Renato wise Name: LOLIS LAW Access ion #: [id number] Sex: F : 1945 4 7 Locati on: RA2 Attend ing Physic melisa: DEBBIE MARTIN Orderi ng Physic melisa: DEBBIE MARTIN Exam Date: 2021 10:57 AM Exam Name: DIGITA L DANILO BILAT SCREEN Admitt ing Diagno sis(es ): RADIOL OGY REPORT - FINAL EXAM: MG DIGITA L DANILO BILAT SCREEN HISTOR Y: screen ing mammog harper 76-yea r-old female with no curren t breast compla ints. The renato wise has a family histor y of breast cancer in her mother at age 7070 years old. COMPAR CINTIA: 2020 TECHNI QUE: Bilate ral CC and MLO views of the breast s were perfor med. Digita l Mammog carly images were obtain ed. CAD (compu ter assist ed detect ion) was utiliz ed. FINDIN GS: There are scatte red areas of fibrog landul ar densit y. Page 1 of 2 [facility] Renato wise Name: LOLIS LAW Access ion #: [id number] Sex: F : 1945 4 7 Exam Date: 2021 10:57 AM Exam Name: DIGITA L DANILO BILAT SCREEN Admitt ing Diagno sis(es ): No masses , asymme tries, suspic ious calcif icatio ns, or cristian ectura l distor tion are seen. IMPRES KEYONNA: BIRADS 1: Assess ment comple te. Negati ve. Recomm end annual screen ing mammog carly. Accord ing to the [employer], yearly mammog sosa are recomm ended starti ng at age 40 and contin uing as long as the woman is in good health . Clinic al Breast Exam should be part of the period ic health exam-a bout every 3 years for women in their 20s and 30s and every year for women 40 and over. Breast self-e xam is an option for women in their 20s. Any breast change noted on the breast self-e xam she would be report ed prompt ly to the [facility]. A negati ve mammog carly report should not discou rage follow -up or biopsy of a clinic ally signif icant findin g and/or abnorm ality. Dense breast tissue may obscur e small neopla sms. This renato wise has been entere d into a mammog carly remind er system with a target date for her next mammog harper. Create d and electr onical ly signed by: Jag alvarez MD Signed Date: 2021 1:03 PM (CT) Dictat ed by: Jag alvarez MD DD: 2021 1:03 PM (CT) DT: 2021 1:03 PM (CT) Page 2 of 2 [id number] [facility] (Imaging) [address] [place], [address], 05/03/2022 23:31:22 05/19/19 23 05/18/2022 MR, francisco ngiop ancre atogr am, w/ contr ast No observ ation record ed. [address] [place] [address], [address], 05/22/2022 14:58:19 07/22/19 23 07/21/2022 , echo ardio gram No observ ation record ed. [address], [place], [address], 08/01/2022 11:28:03 12/06/19 23 12/05/2022 MRI, pancr eas, w/wo contr ast No observ ation record ed. [address], [place], [address], 12/06/2022 14:58:17 12/30/19 23 MAMMO , scree ce, digit al, bilat eral [facility] [address] [id number] [phone] Patien t Name: LOLIS LAW Access ion #: [id number] Sex: F : 1945 4 9 Dictat ed By: Linda Serrano Attend ing Physic melisa: DEBBIE MARTIN ng Physic melisa: DEBBIE MARTIN Exam Date: Exam Name: MG DIGITA L DANILO BILAT SCREEN Admitt ing Diagno sis(es ): CLINIC AL HISTOR Y: Screen ing COMPAR CINTIA STUDY: 2021; 2020 TECHNI QUE: Using a full field digita l 2D mammog carly unit CC and MLO views of both breast s are perfor med. FINDIN GS: BREAST COMPOS ITION: There are scatte red areas of fibrog landul ar densit y in the bilate ral breast s. No suspic ious masses , cristian ectura l distor tion, asymme tries or suspic ious calcif icatio ns in both breast s. IMPRES KEYONNA: No eviden ce of malign karen. Recomm end annual mammog harper. BIRADS : 1 - Negati ve Electr onical ly Signed by: Linda Serrano at 2022 11:09: 26 AM Page 1 [facility] (Imaging) [address] [place], [place], [facility], 01/01/2023 16:45:09 02/09/20 23 MAMMO , scree ce, digit al, bilat eral [facility] [address] [place] [address] [phone] Patien t Name: LOLIS LAW Access ion #: [id number] Sex: F : 1945 4 9 Dictat ed By: Linda Serrano Attend ing Physic melisa: DEBBIE MARTIN Physic melisa: DEBBIE MARTIN Exam Date: 2022 09:40 AM Exam Name: MG DIGITA L DANILO BILAT SCREEN Admitt ing Diagno sis(es ): CLINIC AL HISTOR Y: Screen ing COMPAR CINTIA STUDY: 2021; 2020 TECHNI QUE: Using a full field digita l 2D mammog carly unit CC and MLO views of both breast s are perfor med. FINDIN GS: BREAST COMPOS ITION: There are scatte red areas of fibrog landul ar densit y in the bilate ral breast s. No suspic ious masses , cristian ectura l distor tion, asymme tries or suspic ious calcif icatio ns in both breast s. IMPRES KEYONNA: No eviden ce of malign karen. Recomm end annual mammog harper. BIRADS : 1 - Negati ve Electr onical ly Signed by: Linda Serrano at 2022 11:09: 26 AM Page 1 [facility] (Imaging) [address] [place], [address], 02/12/2023 11:27:58 Result Notes None recorded. Problems Name Problem SNOMED Code Status Onset Date Resolution Date Notes Provider Name and Address Organization Details Recorded Time Essential hypertensi on 76697728 Active 2022 Shaina Santos APRN [address] [facility], [address] [address], [place], [address] , [employer] 4 11:00:15 Hyperlipid emia 10305752 Active 2022 Shaina Santos APRN [address] [facility], [address], [place], [address] , [employer] 4 11:00:25 Mass of pancreas 903211471 Active 2022 Not Available [employer] 3 21:48:22 Kidney stone 29144936 Active 2022 Shaina Santos APRN [address] [facility], [address] [address], [place], [address] , [employer] 4 11:00:40 Impacted cerumen in right ear 0795579479187 103 Active 2022 Not Available [facility] 3 21:48:22 Osteopenia 626599017 Active 2022 Shaina Santos APRN [address], [address], [place], [address] , [place] - [employer] 4 11:00:27 Heart murmur 51011126 Active 2022 Shaina Santos APRN [address], [address], [place], [address] , [employer] 4 11:00:18 Calcificat ion of mitral valve 206256697 Active 2022 Shaina Santos APRN [address], [address], [place], [address] , [employer] - [employer] 4 11:00:12 Glaucoma 98740644 Active 2023 Shaina Santos APRN [address], [address], [place], [address] , [employer] 10:56:55 Problem Notes None recorded. Procedures Surgical History Date Name Laterality Status Provider Name and Address Organization Details Recorded Time 12/19/19 24 Medicare Wellness CPT Code, subsequent completed Shaina Santos APRN [address], [address], [place], [address], [employer] 12/15/2023 14:26:45 11/16/19 23 Medicare Wellness CPT Code, subsequent completed GINGER Bryant-Maddi [address], [address], [place], [address], [employer] 11/15/2022 13:16:15 01/12/20 21 Date of Last Colonoscopy completed Not Available [facility] 05/03/2022 23:28:56 12/14/19 21 Most Recent Bone Density completed Not Available [facility] 05/03/2022 23:28:56 procedure on wrist completed Not Available [facility] 05/03/2022 23:28:57 Tubal Ligation completed Not Available [employer] 05/03/2022 23:28:57 Imaging Results Imaging Date Name Status LastModified by Organization Details LastModified Time 12/28/2021 MAMMO, screening, digital, bilateral completed [id number] [facility] (Imaging) [address] [place], [address], 05/03/2022 23:31:22 05/18/2022 MR, cholangiopancreato gram, w/ contrast completed [address], [address], 05/22/2022 14:58:19 07/21/2022 US, echocardiogram completed [address], [address], 08/01/2022 11:28:03 12/05/2022 MRI, pancreas, w/wo contrast completed [address], [address], 12/06/2022 14:58:17 12/29/2022 MAMMO, screening, digital, bilateral completed ead22 [facility] (Imaging) [address] [place], [address], 01/01/2023 16:45:09 02/08/2023 MAMMO, screening, digital, bilateral completed ea2 [facility] (Imaging) [address] [place], [address], 02/12/2023 11:27:58 Procedure Notes None recorded. Medical Equipment None Reported. 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 12/18 completed Not Available Not Available Not Available pravastatin 20 mg tablet TAKE 1 TABLET BY MOUTH EVERY DAY active Not Available Not Available No t Available hydrochlorot hiazide 12.5 mg tablet TAKE 1 TABLET BY MOUTH EVERY DAY active Not Available Not Available No t Available Vitals Date Recorded Body mass index (BMI) Body height Oxygen saturation Oxygen saturation in Arterial blood by Pulse oximetry Heart rate Body temperature Body weight Systolic blood pressure Diastolic blood pressure Provider Name and Address Organization Details Last Updated DateTime 3 28.5 kg/m2 157.48 cm 98 % 98 % 84 /min 97.6 [degF] 48868.4 1 g 126 mm[Hg] 74 mm[Hg] Not Available [facility] 3 23:29:29 Date Recorded Body height Body mass index (BMI) Body weight Body temperature Heart rate Oxygen saturation Oxygen saturation in Arterial blood by Pulse oximetry Systolic blood pressure Diastolic blood pressure Provider Name and Address Organization Details Last Updated DateTime 3 157.48 cm 28.7 kg/m2 21661 g 98 [degF] 68 /min 97 % 97 % 130 mm[Hg] 78 mm[Hg] Reina Guerra MA [place] [employer] 3 10:46:38 Date Recorded Body height Body mass index (BMI) Body weight Body temperature Heart rate Oxygen saturation Oxygen saturation in Arterial blood by Pulse oximetry Systolic blood pressure Diastolic blood pressure Provider Name and Address Organization Details Last Updated DateTime 3 157.48 cm 28.9 kg/m2 65720.5 9 g 97.9 [degF] 62 /min 96 % 96 % 114 mm[Hg] 76 mm[Hg] Reina Guerra MA [place] [employer] 3 10:59:27 Date Recorded Body height Heart rate Oxygen saturation Oxygen saturation in Arterial blood by Pulse oximetry Body mass index (BMI) Body weight Body temperature Systolic blood pressure Diastolic blood pressure Provider Name and Address Organization Details Last Updated DateTime 4 157.48 cm 67 /min 97 % 97 % 29.3 kg/m2 37216.7 8 g 97 [degF] 118 mm[Hg] 74 mm[Hg] Rashunda Henderson, RESEARCH EDITOR [place] - [facility] [employer] 4 10:57:17 Date Recorded Body height Body mass index (BMI) Body weight Body temperature Heart rate Oxygen saturation Oxygen saturation in Arterial blood by Pulse oximetry Pain severity - 0-10 verbal numeric rating [Score] - Reported Systolic blood pressure Diastolic blood pressure Provider Name and Address Organization Details Last Updated DateTime 4 157.48 cm 28.9 kg/m2 01717.5 9 g 97 [degF] 63 /min 98 % 98 % 1 128 mm[Hg] 64 mm[Hg] Sarah Villarreal MA [place] - [facility] [employer] 4 10:33:44 Social History Question Answer Notes LastModified by Organization Details LastModified Time Tobacco Smoking Status Never Smoker Not Available [employer] 05/03/2022 23:28:27 Do You Have An Advance Directive? Yes Patient Stated She Needs To Check Hers To See If It Needs Updated. MIGRATION.030 [id number] Information not available 05/03/2022 What Is Your Level Of Alcohol Consumption? None MIGRATION.030 934720 Information not available 05/03/2022 Are You Blind Or Do You Have Difficulty Seeing? No MIGRATION.030 373215 Information not available 05/03/2022 What Is Your Level Of Caffeine Consumption? Moderate MIGRATION.030 109427 Information not available 05/03/2022 In The 14 Days Before Symptom Onset, Have You Had Close Contact With A Laboratory-confi rmed COVID-19 While That Case Was Ill? No MIGRATION.030 488893 Information not available 05/03/2022 In The 14 Days Before Symptom Onset, Have You Had Close Contact With A Person Who Is Under Investigation For COVID-19 While That Person Was Ill? No MIGRATION.030 657022 Information not available 05/03/2022 Are You Currently Employed? 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 No MIGRATION.030 544537 Information not available 05/03/2022 What Type Of Diet Are You Following? REGULAR MIGRATION.030 501940 Information not available 05/03/2022 What Is The Highest Grade Or Level Of School You Have Completed Or The Highest Degree You Have Received? [id number] MIGRATION.0301 975238 Information not available 05/03/2022 Have There Been Any Changes To Your Family Or Social Situation? No MIGRATION.0301 306499 Information not available 05/03/2022 What Is The Fluoride Status Of Your Home? Unknown MIGRATION.0301 905984 Information not available 05/03/2022 Are There Any Guns Present In Your Home? No MIGRATION.0301 949660 Information not available 05/03/2022 Do You Use Insect Repellent Routinely? No MIGRATION.0301 268494 Information not available 05/03/2022 Where Do You Live? SingleLevelHouse MIGRATION.0301 352120 Information not available 05/03/2022 What Was The Date Of Your Most Recent Tobacco Screening? 12/19/2023 Information not available 12/19/2023 How Many Children Do You Have? 3 Information not available 12/19/2023 Do You Have Any Pets? No MIGRATION.0301 513541 Information not available 05/03/2022 What Is Your Relationship Status? MIGRATION.0301 470996 Information not available 05/03/2022 Do You Use Your Seat Belt Or Car Seat Routinely? Yes MIGRATION.0301 124679 Information not available 05/03/2022 Do You Have Smoke And Carbon Monoxide Detectors In Your Home? Yes MIGRATION.0301 304720 Information not available 05/03/2022 Are You Passively Exposed To Smoke? No MIGRATION.0301 494149 Information not available 05/03/2022 Are There Any Smokers In Your House? No MIGRATION.0301 074172 Information not available 05/03/2022 Do You Feel Stressed (tense, Restless, Nervous, Or Anxious, Or Unable To Sleep At Night)? [id number] MIGRATION.0301 041495 Information not available 05/03/2022 Do You Use Any Illicit Or Recreational Drugs? No MIGRATION.0301 000673 Information not available 05/03/2022 Do You Use Sunscreen Routinely? Yes MIGRATION.0301 917935 Information not available 05/03/2022 Has Tobacco Cessation Counseling Been Provided? No MIGRATION.0301 968794 Information not available 05/03/2022 Have You Recently Traveled Abroad? No MIGRATION.0301 503022 Information not available 05/03/2022 Do You Have Any Dietary Restrictions? No MIGRATION.0301 383650 Information not available 05/03/2022 Do You Or Have You Ever Used Any Other Forms Of Tobacco Or Nicotine? No MIGRATION.0301 800612 Information not available 05/03/2022 Sex: Unknown Functional Status Question Answer Note LastModified by Organizat ion Details LastModified Time Do you have difficulty walking or climbing stairs? No MIGRATION.173187 7719 Information not available 05/03/2022 Do you have transportation difficulties? No MIGRATION.431452 3891 Information not available 05/03/2022 Are you able to walk? YESWOREST MIGRATION.193443 0169 Information not available 05/03/2022 Do you have difficulty doing errands alone? No MIGRATION.459627 6212 Information not available 05/03/2022 Are you able to care for yourself? Yes MIGRATION.687515 7326 Information not available 05/03/2022 Do you have difficulty dressing or bathing? No MIGRATION.722480 6368 Information not available 05/03/2022 What is your exercise level? Moderate WALKING MIGRATION.792046 4679 Information not available 05/03/2022 Mental Status Question Answer Note LastModified by Organizat ion Details LastModified Time Do you have difficulty concentrating, remembering or making decisions? No MIGRATION.034393245 6 Information not available 05/03/2022 Family History Relationship Description Onset Age of this Age Resolved Age Notes LastModified by Organization Details LastModified Time Mother Malignant tumor of breast MIGRATION.111 [id number] Not available 05/03/2022 23:28:59 Unspecified Relation Family history of stroke MOTHER S SIDE OF FAMILY MIGRATION.557 [id number] Not available 05/03/2022 23:28:59 Medical History Condition Response NERVE DISEASE N BLINDNESS N RHEUMATIC FEVER N KIDNEY STONES N BLADDER PROBLEMS N MRSA N OTHER # 1 N POLIO N LUNG DISEASE/DISORDER N HISTORY OF DRUG ABUSE N RADIATION / CHEMOTHERAPY N COPD N Other # 2 N BLOOD DISEASES N EAR OR HEARING PROBLEMS N MUMPS N SHINGLES N BOWEL PROBLEMS N DEPRESSION (INCLUDING POST ) N STROKE/TIA N ULCERS N BENIGN PROSTATIC HYPERPLASIA N MEASLES N HYPOTENSION N MYOCARDIAL INFARCTION N OBESITY N GERD/NAUSEA N ANEURYSM N URINARY/BLADDER/KIDNEY PROBLEMS N CORONARY ARTERY DISEASE (CAD) N ADDICTION CONCERNS N Impotence N ENDOMETRIOSIS N USE OF BLOOD THINNERS N SKIN PROBLEMS N GASTROINTESTINAL DISORDER N PERIPHERAL VASCULAR DISEASE N MUSCLE,JOINT OR BONE PROBLEMS N GASTROINTESTINAL BLEEDING N BLOOD CLOTS N ASTHMA N CATARACTS N ERECTILE DYSFUNCTION N VARICOSITIES N GI PROBLEMS N Low Testosterone N INFERTILITY N AIDS/HIV N CHEMOTHERAPY / RADIATION N LIVER DISEASE N MALE HYPOGONADISM N HYPERTENSION Y Deficiency N TOURETTE'S N ANXIETY DISORDER N BLOOD TRANSFUSION N ANEMIA/BLOOD DISORDER N CHRONIC EAR INFECTIONS N BRONCHITIS N TUBERCULOSIS N GLAUCOMA N FOOT PROBLEM N DIVERTICULITIS N SLEEP APNEA N CHICKENPOX N INFECTIOUS DISEASE N PROSTATE N HEART ARRHYTHMIA N INSOMNIA N HIGH CHOLESTEROL / HYPERLIPIDEMIA Y EYE PROBLEMS N HYPERTHYROIDISM N EDEMA N CHRONIC PAIN SYNDROME N HYPOTHYROIDISM N CONSTIPATION N CAROTID BLOCKAGE N BACK / NECK PROBLEMS N ATHEROSCLEROSIS N BREAST PROBLEMS N DIALYSIS N ECZEMA N OSTEOPOROSIS N ARTHRITIS N APPENDICITIS N DIABETES, TYPE N BAD TEETH N ENT N HEARTBURN / REFLUX N AUTISM SPECTRUM DISORDER (ASD) N HEPATITIS / LIVER DISEASE N GOUT N SLEEP DISORDER N ALZHEIMER'S DISEASE N Brain Problems N DEMENTIA N HERPES N SEIZURES/EPILEPSY N HEADACHES/MIGRAINES N VASCULAR DISEASE N PACEMAKER N Blood Disorder N DIZZINESS N HEART DISEASE/HEART PROBLEMS N KIDNEY DISEASE N MULTIPLE SCLEROSIS N CANCER: SPECIFY N CARDIAC ARRHYTHMIA N ATRIAL FIBRILLATION N Gall Stones N PULMONARY EMBOLISM N AUTOIMMUNE DISEASE N Gynecological History Statement/Question Response How many live births 43 Date of Last Mammogram 12/13/2020 Date of Last Colonoscopy 01/11/2021 Date of Last Mammogram Most Recent Bone Density 12/13/2020 Date of LMP Date of Last Pap Current Control Method Menopause Obstetrics History GPAL:G 4 P 4 0 0 4 Type Value Multiple Births 0 Full Term 4 Induced 0 Spontaneous 0 Premature 0 Living 4 Ectopics 0 Total 4 Immunizations Vaccine Type Date Status Note Provider Nam e and Address Organization Details Recorded Time Influenza, split virus, trivalent, preservative 1 completed Not Available [facility] 02/08/2023 21:48:23 Influenza, high-dose, quadrivalent, PF 2 completed Shaina Santos APRN [address] [facility], [facility] [address], [place], [address], [facility] [employer] 12/15/2023 14:24:45 Influenza, adjuvanted, quadrivalent, PF 1 completed Shaina Santos APRN [address] [facility], [facility] [address], [place], [address], [facility] [employer] [facility] 12/15/2023 14:24:45 COVID-19, mRNA, LNP-S, PF, 100 mcg/0.5mL dose or 50 mcg/0.25mL dose 2 completed Shaina Santos APRN [address], [address], [place], [address], [facility] [employer] [facility] 12/15/2023 14:24:45 COVID-19, mRNA, LNP-S, PF, 100 mcg/0.5mL dose or 50 mcg/0.25mL dose 1 completed Shaina Santos APRN [address], [address], [place], [address], [facility] [employer] [facility] 12/15/2023 14:24:45 Influenza, adjuvanted, quadrivalent, PF 3 completed Shaina Santos APRN [address], [facility] [address], [place], [address], [facility] [employer] [facility] 12/15/2023 14:24:55 Pneumococcal Conjugate, unspecified formulation 8 completed Shaina Santos APRN [address], [facility] [address], [place], [address], [facility] [employer] [facility] 12/19/2023 10:45:04 Influenza, high-dose, trivalent, PF 4 completed SYLWIA Acuna, [facility] [employer] [facility] 12/19/2023 11:06:07 Past Encounters Encounter ID Performer Location Encounter Start Date Encounter Closed Date Diagnosis/Indication Diagnosis SNOMED-CT Code Diagnosis ICD10 Code Diagnosis Note [id number] [facility] [place] Med Zaynab skaggs [address] , [facility] [place] [address] 10/13/2020 00:00:00 10/13/2020 15:36:11 [id number] [facility] [place] Surgery [address] [place] [address] 11/29/2020 00:00:00 11/29/2020 11:31:53 [id number] [facility] Internal Med [place] [address] [place] [address] [place] [address] 04/13/2021 00:00:00 04/13/2021 13:32:00 [id number] [facility] Internal Med [place] [address] [place] [address] y , [place] [address] 10/26/2021 00:00:00 10/26/2021 13:18:44 [id number] [facility] Internal Med [place] [address] [place] [address] [place] [address] 01/18/2022 00:00:00 01/18/2022 10:50:53 [id number] BETHANIE Bryant [facility] Internal Med [place] [address] [place] [address] [place] [address] 06/21/2022 10:38:47 06/21/2022 11:09:53 Essential hypertension 35549363 I10 on enalapril, HCTZ Hyperlipidemia 06552931 E78.5 on pravastati n Mass of pancreas 1333804 00 K86.89 now following oncology- Dr. Saha, he has also consulted with surgerynow getting follow ups and MRIs every 6 months with oncology- next in Dec Osteopenia 364380785 M85 .80 on OTC vit d and calciumwei ght bearing exercise recommende d Impacted c erumen in right ear 0342348622 343406 H61.21 get appt with ENT for removal Kidney stone 18609777 N2 0.0 follows urology- Dr. Martinez Heart murmur 60080511 R0 1.1 get echowill likely need cardiology referral after we get resultER precaution s [id number] BETHANIE Bryant [facility] Internal Med [place] [address] [place] [address] [place] [address] 11/15/2022 10:47:34 11/15/2022 11:23:39 Essential hypertension 57618414 I10 on enalapril, HCTZ Hyperlipidemia 33533924 E78.5 on pravastati n Mass of pancreas 2544293 00 K86.89 now following oncology- Dr. Saha, he has also consulted with surgerynow getting follow ups and MRIs every 6 months with oncology- next in Dec Kidney stone 07636000 N2 0.0 follows urology- Dr. Martinez Osteopenia 250547061 M85 .80 on OTC vit d and calciumwei ght bearing exercise recommende d Impacted c erumen in right ear 3351525902 836202 H61.21 now following ENT Heart murmur 85115880 R0 1.1 s/pdid see cardiology at [facility]- no more follow up needed Screening mammography 24 641732 Z12.31 Renewal of prescription 260500724 Z76.0 Adult heal th examination 268785028 Z00.00 Screening for disorder 740164199 Z13.9 [id number] Shaina Santos APRN [facility] Internal Med [place] [address] [place] [address] [place] [address] [address] 06/13/2023 10:42:39 06/13/2023 11:11:55 Essential hypertension 97151025 I10 Hyperlipidemia 43656712 E78.5 Renewal of prescription 937961025 Z76.0 [id number] Shaina Santos APRN [facility] Internal Med [place] [address] [place] [address] [place] [place] [address] 12/19/2023 10:23:07 12/19/2023 11:07:25 Adult health examination 667560028 Z00.00 Screening for disorder 993241927 Z13.9 Hepatitis C screening 41 1108785 Z11.59 Renewal of prescription 304295898 Z76.0 Administra tion of influenza vaccine 51493765 Z23 Health Concerns Section Related Observation LastModified by Organization Detai ls LastModified Time None Recorded Concern Status LastModified by Organization Details LastModified Time None Recorded Advance Directives Directive Y: Patient stated she needs to check hers to see if it needs updated. Payers Encounter Date Sequence Insurance Name Policy Number Policy Lopez Covered Member ID Lopez Member ID Guarantor Name 06/21/2022 1 [place] Keyla Law [id number] Keyla Law 06/21/2022 2 [employer] (MEDICARE SUPPLEMENT) Keyla A Hitz [id number] Keyla Hitz 11/15/2022 1 [place] Keyla Hitz [id number] Keyla Hitz 11/15/2022 2 [employer] (MEDICARE SUPPLEMENT) Keyla A Hitz [id number] Keyla Hitz 06/13/2023 1 [place] Keyla Hitz [id number] Keyla Hitz 06/13/2023 2 [employer] (MEDICARE SUPPLEMENT) Keyla A Hitz [id number] Keyla Hitz 12/19/2023 1 [place] Keyla Hitz [id number] Keyla Hitz 12/19/2023 2 [employer] (MEDICARE SUPPLEMENT) Keyla A Hitz [id number] Keyla Hitz Notes Date Note Type Note Provider Name and Address Organization Details Recorded Time 06/21/2022 text/html Keyla sams ts today for follow-up. She reports her blood pressures been well controlled at home. She is not having any side effects with the medication. She did have 1 elevated blood pressure when she is at the oncologists, presumably due to stress of the appointment. She reports since that 1 they have all been normal. She continues on her statin without issue. She denies any side effects. She continues to follow Oncology for the pancreatic cyst. She is now having MRIs every 6 months and following up with Dr. Saha after those. Her next MRI scheduled for December along with her follow-up appointment with Oncology. Today on exam, I did notice a faint systolic murmur. She tells me she has never been diagnosed with a heart murmur before. She is asymptomatic with this. She does not have any chest pain, shortness of breath, palpitations, dizziness, presyncope or syncope. She tells me she has been walking daily now that the weather is nicer and she has been able to handle that without any symptoms either. Debbie Martin, [employer] OPERATOR-C [address] [place] [address], [facility] [address], [place], [address], [facility] [employer] 06/21/2022 11:22:53 11/15/2022 text/html Keyla sams ts today for follow-up. She is also due for Medicare annual wellness visit. Blood pressures been well controlled at home. She has not had any side effects with her meds. She did see the air support control officer. He felt everything was okay and that she no longer need to see him. She has another MRI with Oncology early next month to follow the pancreatic mass. She does get some anxiety with MRIs so she is requesting a refill on her lorazepam to use prior to her scan. She then has a follow-up appointment with Oncology the week after the scan. Mammogram is due next month. BETHANIE Bryant [address], [address], [place], [address], [facility] [employer] [facility] [employer] 11/15/2022 13:21:22 06/13/2023 text/html Keyla piercedebi ts today to establish care. She states that seen a air support control officer 1 times for heart murmur and he felt that she was fine. She states that she has had her pneumococcal vaccine. I recommended her to have the shingles vaccine also. She states that she does not follow up with urology as she believes that she has passed the kidney stone. No illness or injuries noted since last visit.11/15/2022doris roper presents today for follow-up. She is also due for Medicare annual wellness visit. Blood pressures been well controlled at home. She has not had any side effects with her meds. She did see the air support control officer. He felt everything was okay and that she no longer need to see him. She has another MRI with Oncology early next month to follow the pancreatic mass. She does get some anxiety with MRIs so she is requesting a refill on her lorazepam to use prior to her scan. She then has a follow-up appointment with Oncology the week after the scan. Mammogram is due next month. Shaina Santos APRN [address], [address], [place], [address], [employer] [facility] [employer] 06/13/2023 11:09:39 12/19/2023 text/html Keyla piercedebi ts today for Medicare Annual Wellness exam and 6 month follow up. She denies any illness and issues. 06/13/2023Keyla presents today to establish care. She states that seen a air support control officer 1 times for heart murmur and he felt that she was fine. She states that she has had her pneumococcal vaccine. I recommended her to have the shingles vaccine also. She states that she does not follow up with urology as she believes that she has passed the kidney stone. No illness or injuries noted since last visit.11/15/2022doris roper presents today for follow-up. She is also due for Medicare annual wellness visit. Blood pressures been well controlled at home. She has not had any side effects with her meds. She did see the air support control officer. He felt everything was okay and that she no longer need to see him. She has another MRI with Oncology early next month to follow the pancreatic mass. She does get some anxiety with MRIs so she is requesting a refill on her lorazepam to use prior to her scan. She then has a follow-up appointment with Oncology the week after the scan. Mammogram is due next month. Shaina Santos, DARREN [address] [facility], [place] [address], [place], [address], [place] [facility] [employer] 12/19/2023 17:13:08 OBGyn Episode No OBEpisode recorded.
--- OUTSIDE RECORDS SUMMARY | 2024-04-17 13:44 | XMS_ITS | Clinical Summary ---
Author Organization [facility] José Luis Sommers Address [address] [place] [address] Care Team Providers Care Hospice Care Transitions Coordinator Name Role Phone Alexandra Luna MD Primary Care Provider Allergies No known active allergies Medications enalapril (VASOTEC) 10 mg tablet enalapril maleate 10 mg tablet TAKE 1 TABLET BY MOUTH EVERY DAY Active hydroCHLOROth iazide (HYDRODIURIL) 12.5 mg tablet hydrochlorothiazide 12.5 mg tablet TAKE 1 TABLET BY MOUTH EVERY DAY Active pravastatin (PRAVACHOL) 20 mg tablet Take 20 mg by mouth daily. 10/06/19 22 Active latanoprost (XALATAN) 0.005 % solution INSTILL 1 DROP BOTH EYES ONCE DAILY IN THE EVENING 05/05/19 23 Active Active Problems Problem Noted Date Diagnosed Date Pancreatic cyst 11/18/2021 Encounters Date Type Department Care Team Description 04/01/2024 External Device Data [facility]STRACTION Provider, Abstract 03/26/2024 External Device Data [facility] Provider, Abstract 03/26/2024 External Device Data [facility] Provider, Abstract from Last 3 Months Social History Tobacco Use Types Packs/Day Years Used Date Smoking Tobacco: Never Smokeless Tobacco: Never Tobacco Cessation:Counseling Given: Not Answered Comments Unknown Sex and Gender Information Value Date Recorded Sex Assigned at Not on file Legal Sex Female 3:29 PM CDT Gender Identity Not on file Sexual Orientation Not on file Last Filed Vital Signs Vital Sign Reading Time Taken Comments Blood Pressure 172/79 09/10/2023 10:03 AM CDT Pulse 69 09/10/2023 10:03 AM CDT Temperature 36.7 C (98 F) 09/10/2023 9:58 AM CDT Respiratory Rate 16 09/10/2023 9:58 AM CDT Oxygen Saturation 96% 09/10/2023 9:58 AM CDT Inhaled Oxygen Concentration - - Weight 70.8 kg (156 lb) 09/10/2023 9:58 AM CDT Height 157.5 cm (5' 2 ) 11/18/2021 12:14 PM CDT Body Mass Index 28.53 11/18/2021 12:14 PM CDT Plan of Treatment Upcoming Encounters Date Type Department Care Team (Late st Contact Info) Description 09/10/2024 10:15 AM CDT Office Visit [facility] Oncology and Hematology - [place] [address] [facility] [address] [place] [address] Lasha Saha MD [address] [facility] [address] [place] [address] Health Maintenance Due Date Last Done Comments DTAP/TDAP/TD VACCINES (1 - Tdap) 1965 PNEUMOCOCCAL VACCINE 65+ YEARS (1 of 1 - PCV) 09/06/18 97 ZOSTER VACCINE (1 of 2) 1996 OSTEOPOROSIS SCREENING 09/07/2011 RSV VACCINE (60+ or ) (1 - 1-dose 75+ series) 2021 INFLUENZA VACCINE (#1) 2023 12/05/2020 COLORECTAL SCREENING Discontinued 01/10/2021 Colorectal Cancer Screening Discontinued FIT-DNA Q 3 years Discontinued FIT/FOBT Q 1 year Discontinued Flex Sig/CT Colonography Q 5 years Discontinued Insurance MEDICARE PART A AND B [facility] [place] [address] Care Teams Hospice Care Transitions Coordinator Relationship Specialty Start Date End Date Alexandra Luna MD PCP - General Internal Medicine 12/11/22
== END 2024-04-17 13:41 | disposition home or self-care (01) ==
PROVIDERS: PCP Nurse Practitioner Family; Visit Provider Nurse Practitioner Family
DX: Z12.31 Encounter for screening mammogram for malignant neoplasm of breast (principal)
CPT/HCPCS: 77063; 77067

== ENCOUNTER 2024-09-10 09:38 | Outpatient (CLI) | payer MEDICARE, OTHER, SELFPAY ==
--- OUTSIDE RECORDS SUMMARY | 2024-09-10 09:43 | XMS_ITS | Data Portability ---
Author Organization [place] - [facility] [employer], Main Office Address [address] [place] [address] Assessment Encounter Date Assessment Date Assessment LastModified by Organization Details LastModified Time 06/21/2022 06/21/2022 Cscope- 01/2021- tubular adenoma- repeat 01/2026 Mammogram- 12/2021 DEXA- 12/2020-osteopen ia WWE- no longer doing 2/2 age Call office if worse, ER if life threatening illness RTC 4 months She voices understanding of plan and agrees [email or web address] Not available 06/17/2022 12:39:11 11/15/2022 11/15/2022 Cscope- 01/2021- tubular adenoma- repeat 01/2026 Mammogram- 12/2021 DEXA- 12/2020-osteopen ia WWE- no longer doing 2/2 age Call office if worse, ER if life threatening illness RTC 4 months She voices understanding of plan and agrees [email or web address] Not available 11/15/2022 11:07:17 Plan of Treatment Reminders Order Date Submit Date Provider Last Modified By Organization Details Last Modified Time Details Appointments Medicare Wellness 30 2024 10:00A M GINGER Chambers Not available Not available Not available Lab [...] 03/14/2023 08:59:21 US, echocardi ogram 2022 023 [facility] ([facility]), [address], [place], [address], 07/21/2022 16:32:55 Medication Orders enalapril maleate 10 mg tablet [address] [id number], [address], [place], [place], [id number], 06/24/2024 14:14:20 enalapril maleate 10 mg tablet [address] [facility] #88303, [address], [place], [place], [id number], 12/19/2023 10:59:13 hydrochlo rothiazid e 12.5 mg tablet [address] [facility] #53167, [address], [place], [place], [id number], 12/19/2023 10:59:12 pravastat in 20 mg tablet [address] [facility] #38662, [address], [place], [place], [id number], 12/19/2023 10:59:12 pravastat in 20 mg tablet [address] [facility] #21309, [address], [place], [place], [id number], 06/13/2023 11:09:36 hydrochlo rothiazid e 12.5 mg tablet [address] [facility] #46611, [address], [place], [place], [id number], 06/13/2023 11:09:36 enalapril maleate 10 mg tablet [address] [facility] #36933, [address], [place], [place], [id number], 06/13/2023 11:09:38 lorazepam 0.5 mg tablet 2022 023 [id number], [address] [facility], [place], [place], [id number], 12/19/2023 10:34:03 Patient TargetsNo targets recorded. Patient Instructions Encounter Date Encounter Id Patient Instructions Last Modified By Organization Details Last Modified Time 11/15/2022 [id number] dementia rating scale-2* [email or web address] Not available 11/15/2022 13:20:40 depression screening* [email or web address] Not available 11/15/2022 13:20:40 multi-dimensiona health assessment questionnaire* [email or web address] Not available 11/15/2022 13:20:40 advance directiv es: care instructions [email or web address] Not available 11/15/2022 13:20:40 advance care planning: care instructions [email or web address] Not available 11/15/2022 13:20:40 [place] Advance Directives [email or web address] Not available 11/15/2022 13:20:40 Personalized [facility] lt Plan and Screening Recommendations Advance Directives [...] Physical activity: Appropriate physical activity minimum of 30-40 minutes of activity that causes mild breathlessness/day Nutrition: Average Refer to attached handout Heart-Healthy Diet: After Your Visit Fall Risk (screened today): Low Refer to attached handout Preventing Falls: After your Visit Vaccines Pneumococcal: No further needed Influenza: Your next one in the fall of this year Chronic Disease Risks Stroke: Intermediate Risk Heart Attack: Intermediate Risk Clogging of the Arteries: Intermediate Risk Diabetes: Low Risk Secondary Prevention/Interven tion (detects treatable diseases before they may cause symptoms, disability, or ) Breast Cancer Screening with mammogram: Ordered Cervical/Uterine/Ov sherita Cancer Screening: No screening necessary Osteoporosis Screening: Your next DEXA in: 2023 Date Screening Last Performed: Colon Cancer Screening: Colonoscopy In: 2025 Date Screening Last Performed: Eye Disease Screening: Recommended today Dementia Risk: Low Depression Screening: Negative [email or web address] Not available 11/15/2022 13:20:38 06/13/2023 [id number] Follow up in 6 months Labs ordered Medication refills sent to pharmacy Not available 06/13/2023 11:09:22 12/19/2023 [id number] dementia rating scale-2* Not available 12/19/2023 10:59:05 multi-dimensiona l health assessment questionnaire* Not available 12/19/2023 10:59:06 care plan* Not available 12/18 10:59:06 advance directiv es: care instructions Not available 12/19/2023 10:59:06 advance care planning: care instructions Not available 12/19/2023 10:59:05 [place] Advance Directives Not available 12/19/2023 10:59:06 Follow [...] Non Smoker Alcohol Misuse Screening: Negative Weight: Overweight try to lose 10% of your body weight Physical activity: Appropriate physical activity minimum of 20-30 minutes activity that causes mild breathlessness/day Nutrition: Good Refer to attached handout DASH Diet: After Your Visit Fall Risk (screened today): Low Refer to attached handout Preventing Falls: After your Visit Vaccines Pneumococcal: No further needed Influenza: Ordered Chronic Disease Risks Stroke: Low Risk I have no recommendations Heart Attack: Low risk I have no recommendations Clogging of the Arteries: Low risk I have no recommendations Diabetes: Low Risk I have no recommendations Secondary Prevention/Interven tion (detects treatable diseases before they may cause symptoms, disability, or ) Breast Cancer Screening with mammogram: Your next mammogram: 2024 Cervical/Uterine/Ov sherita Cancer Screening: Recommended today, but you have declined Osteoporosis [...] Abnormal Flag Note LastModifiedBy Organization Detail LastModifiedTime 07/06/19 23 07/05/2022 CBC/C OMPLE TE BLD COUNT W/DIF F white blood cells 4.2 x10'3 /uL 4.2-10 .8 Not Available [facility] (Lab) [address] [place], [address], 07/05/2022 12:55:15 07/06/19 23 07/05/2022 CBC/C OMPLE TE BLD COUNT W/DIF F red blood cells 4.39 x10'6 /uL 3.80-5 .20 Not Available [facility] (Lab) [address] [place], [address], 07/05/2022 12:55:15 07/06/19 23 07/05/2022 CBC/C OMPLE TE BLD COUNT W/DIF F hemoglobin 13.1 g/dL 12.0-1 5.6 Not Available [facility] (Lab) [address] [place], [address], 07/05/2022 12:55:15 07/06/19 23 07/05/2022 CBC/C OMPLE TE BLD COUNT W/DIF F hematocrit 40.0 % 35.7-4 5.7 Not Available [facility] (Lab) [address] [place], [address], 07/05/2022 12:55:15 07/06/19 23 07/05/2022 CBC/C OMPLE TE BLD COUNT W/DIF F mean red cell volume 91.1 fL 82.0-9 9.0 Not Available [facility] (Lab) [address] [facility] [place] [place], [address], 07/05/2022 12:55:15 07/06/19 23 07/05/2022 CBC/C OMPLE TE BLD COUNT W/DIF F mean red cell hemoglobin 29.8 pg 27.0-3 3.0 Not Available [facility] (Lab) [address] [facility] [place], [address], 07/05/2022 12:55:15 07/06/19 23 07/05/2022 CBC/C OMPLE TE BLD COUNT W/DIF F mean RBC HGB concentratio n 32.8 g/dL 31.0-3 6.0 Not Available [facility] (Lab) [address] [place], [address], 07/05/2022 12:55:15 07/06/19 23 07/05/2022 CBC/C OMPLE TE BLD COUNT W/DIF F red cell distribution width 12.7 % 11.8-1 5.5 Not Available [facility] (Lab) [address] [place], [address], 07/05/2022 12:55:15 07/06/19 23 07/05/2022 CBC/C OMPLE TE BLD COUNT W/DIF F platelets 269 x10'3 /uL 150-40 0 Not Available [facility] (Lab) [address] [place], [address], 07/05/2022 12:55:15 07/06/19 23 07/05/2022 CBC/C OMPLE TE BLD COUNT W/DIF F mean platelet volume 10.9 fL 9.0-12 .4 Not Available [facility] (Lab) [address] [place], [address], 07/05/2022 12:55:15 07/06/19 23 07/05/2022 CBC/C OMPLE TE BLD COUNT W/DIF F neutrophils 65.6 % 39.0-7 2.0 Not Available [facility] (Lab) [address] [place], [address], 07/05/2022 12:55:15 07/06/19 23 07/05/2022 CBC/C OMPLE TE BLD COUNT W/DIF F lymphocytes 24.6 % 16.0-4 7.0 Not Available [facility] (Lab) [address] [place], [address], 07/05/2022 12:55:15 07/06/1907/05/2022 CBC/C OMPLE TE BLD COUNT W/DIF F monocytes 7.2 % 5.0-12 .0 Not Available [facility] (Lab) [address] [place], [address], 07/05/2022 12:55:15 07/06/1907/05/2022 CBC/C OMPLE TE BLD COUNT W/DIF F eosinophils 1.7 % 1.0-7. 0 Not Available [facility] (Lab) [address] [place], [address], 07/05/2022 12:55:15 07/06/1907/05/2022 CBC/C OMPLE TE BLD COUNT W/DIF F basophils 0.7 % 0.0-2. 0 Not Available [facility] (Lab) [address] [place], [address], 07/05/2022 12:55:15 07/06/1907/05/2022 CBC/C OMPLE TE BLD COUNT W/DIF F immature granulocytes 0.2 % 0.00-0 .50 Not Available [facility] (Lab) [address] [place], [address], 07/05/2022 12:55:15 05/03/20 23 07/05/2022 CBC/C OMPLE TE BLD COUNT W/DIF F neutrophils, absolute count 2.75 x10'3 /uL 1.5-8. 0 Not Available [facility] (Lab) [address] [place], [address], 07/05/2022 12:55:15 07/06/19 23 07/05/2022 CBC/C OMPLE TE BLD COUNT W/DIF F lymphocytes, absolute count 1.03 x10'3 /uL 1.07-3 .43 low Not Available [facility] (Lab) [address] [place], [address], 07/05/2022 12:55:15 07/06/19 23 07/05/2022 CBC/C OMPLE TE BLD COUNT W/DIF F monocytes, absolute count 0.30 x10'3 /uL 0.29-0 .99 Not Available [facility] (Lab) [address] [place], [address], 07/05/2022 12:55:15 07/06/19 23 07/05/2022 CBC/C OMPLE TE BLD COUNT W/DIF F eosinophils, absolute count 0.07 x10'3 /uL 0.02-0 .53 Not Available [facility] (Lab) [address] [place], [address], 07/05/2022 12:55:15 07/06/19 23 07/05/2022 CBC/C OMPLE TE BLD COUNT W/DIF F basophils, absolute count 0.03 x10'3 /uL 0.01-0 .08 Not Available [facility] (Lab) [address] [place], [address], 07/05/2022 12:55:15 07/06/19 23 07/05/2022 CBC/C OMPLE TE BLD COUNT W/DIF F immature granulocytes ,absolute 0.01 x10'3 /uL 0.00-0 .05 Not Available [facility] (Lab) [address] [place], [address], 07/05/2022 12:55:15 07/06/19 23 07/05/2022 CBC/C OMPLE TE BLD COUNT W/DIF F nucleated red blood cells 0.0 % -0 Not Available [facility] (Lab) [address] [place], [address], 07/05/2022 12:55:15 07/06/19 23 07/05/2022 CBC/C OMPLE TE BLD COUNT W/DIF F NRBC# 0.00 x10'3 /uL Not Available [facility] (Lab) [address] [facility] [place], [address], 07/05/2022 12:55:15 07/06/19 23 07/05/2022 URINA LYSIS COMPL ETE/I RIS W/RFX color COLORL ESS Not Available [facility] (Lab) [address] [facility] [place], [address], 07/05/2022 13:06:11 07/06/19 23 07/05/2022 URINA LYSIS COMPL ETE/I RIS W/RFX appear CLEAR Not Available [facility] (Lab) [address] [place], [address], 07/05/2022 13:06:11 07/06/19 23 07/05/2022 URINA LYSIS COMPL ETE/I RIS W/RFX specific gravity 1.006 1.001- 1.030 Not Available [facility] (Lab) [address] [place], [address], 07/05/2022 13:06:11 07/06/19 23 07/05/2022 URINA LYSIS COMPL ETE/I RIS W/RFX pH 5.5 pH_un its 5.0-9. 0 Not Available [facility] (Lab) [address] [place], [address], 07/05/2022 13:06:11 07/06/19 23 07/05/2022 URINA LYSIS COMPL ETE/I RIS W/RFX leukocytes NEGATI VE mami/u L negati ve- Not Available [facility] (Lab) [address] [place], [address], 07/05/2022 13:06:11 07/06/19 23 07/05/2022 URINA LYSIS COMPL ETE/I RIS W/RFX nitrite NEGATI VE negati ve- Not Available [facility] (Lab) [address] [place], [address], 07/05/2022 13:06:11 07/06/19 23 07/05/2022 URINA LYSIS COMPL ETE/I RIS W/RFX protein NEGATI VE mg/dL negati ve- Not Available [facility] (Lab) [address] [place], [address], 07/05/2022 13:06:11 07/06/19 23 07/05/2022 URINA LYSIS COMPL ETE/I RIS W/RFX glucose NORMAL mg/dL normal - Not Available [facility] (Lab) [address] [place], [address], 07/05/2022 13:06:11 07/06/19 23 07/05/2022 URINA LYSIS COMPL ETE/I RIS W/RFX ketones NEGATI VE mg/dL negati ve- Not Available [facility] (Lab) [address] [place], [address], 07/05/2022 13:06:11 07/06/19 23 07/05/2022 URINA LYSIS COMPL ETE/I RIS W/RFX urobilinogen NORMAL mg/dL normal - Not Available [facility] (Lab) [address] [place], [address], 07/05/2022 13:06:11 07/06/19 23 07/05/2022 URINA LYSIS COMPL ETE/I RIS W/RFX bilirubin NEGATI VE mg/dL negati ve- Not Available [facility] (Lab) [address] [place], [address], 07/05/2022 13:06:11 07/06/19 23 07/05/2022 URINA LYSIS COMPL ETE/I RIS W/RFX blood NEGATI VE mg/dL negati ve- Not Available [facility] (Lab) [address] [place], [address], 07/05/2022 13:06:11 07/06/19 23 07/05/2022 URINA LYSIS COMPL ETE/I RIS W/RFX white blood cells 0-8 /i??h pfi?? 0-8 Not Available [facility] (Lab) [address] [place], [address], 07/05/2022 13:06:11 07/06/19 23 07/05/2022 URINA LYSIS COMPL ETE/I RIS W/RFX red blood cells 0-4 /i??h pfi?? 0-4 Not Available [facility] (Lab) [address] [place], [address], 07/05/2022 13:06:11 07/06/19 23 07/05/2022 URINA LYSIS COMPL ETE/I RIS W/RFX bacteria OCCASI ONAL abnormal Not Available [facility] (Lab) [address] [place], [address], 07/05/2022 13:06:11 07/06/19 23 07/05/2022 URINA LYSIS COMPL ETE/I RIS W/RFX mucous OCCASI ONAL /i??l pfi?? abnormal Not Available [facility] (Lab) [address] [place], [address], 07/05/2022 13:06:11 07/06/19 23 07/05/2022 URINA LYSIS COMPL ETE/I RIS W/RFX squamous epithelial FEW /i??l pfi?? abnormal Not Available [facility] (Lab) [address] [place], [address], 07/05/2022 13:06:11 07/06/19 23 07/05/2022 COMPR EHENS GALE METAB OLIC PANEL sodium 134 mmol/ L 137-14 5 low Not Available [facility] (Lab) [address] [place], [address], 07/05/2022 14:05:28 07/06/19 23 07/05/2022 COMPR EHENS GALE METAB OLIC PANEL potassium 3.9 mmol/ L 3.5-5. 1 Not Available [facility] (Lab) [address] [place], [address], 07/05/2022 14:05:28 07/06/19 23 07/05/2022 COMPR EHENS GALE METAB OLIC PANEL chloride 99 mmol/ L 98-107 Not Available [facility] (Lab) [address] [place], [address], 07/05/2022 14:05:28 07/06/19 23 07/05/2022 COMPR EHENS GALE METAB OLIC PANEL carbon dioxide 28 mmol/ L 22-30 Not Available [facility] (Lab) [address] [place], [address], 07/05/2022 14:05:28 07/06/19 23 07/05/2022 COMPR EHENS GALE METAB OLIC PANEL anion gap 10.9 mmol/ L 14-22 low Not Available [facility] (Lab) [address] [place], [address], 07/05/2022 14:05:28 07/06/19 23 07/05/2022 COMPR EHENS GAEL METAB OLIC PANEL glucose 105 mg/dL 70-99 high Not Available [facility] (Lab) [address] [place], [address], 07/05/2022 14:05:28 07/06/19 23 07/05/2022 COMPR EHENS GALE METAB OLIC PANEL BUN 15 mg/dL 8-19 Not Available [facility] (Lab) [address] [place], [address], 07/05/2022 14:05:28 07/06/19 23 07/05/2022 COMPR EHENS GALE METAB OLIC PANEL creatinine 0.63 mg/dL 0.66-1 .25 low Not Available [facility] (Lab) [address] [facility] [place], [address], 07/05/2022 14:05:28 07/06/19 23 07/05/2022 COMPR EHENS GALE METAB OLIC PANEL GFR >60 Refer ence Range : [place] ge GFR Healt hy Adult : >60 [...] or ethni c subgr oups, such as [facility] nics. Outsi de the valid ated [...] calcu lator is avail able on the [facility] websi te: https :[email or web address] w.daphney posadas.o rg/pr ofess ional s/kdo qi/gf r_cal culat or Not Available [facility] (Lab) [address] [place], [address], 07/05/2022 14:05:28 07/06/19 23 07/05/2022 COMPR EHENS GALE METAB OLIC PANEL alkaline phosphatase 89 U/L 38-126 Not Available [facility] (Lab) [address] [place], [address], 07/05/2022 14:05:28 07/06/19 23 07/05/2022 COMPR EHENS GALE METAB OLIC PANEL alanine aminotransfe rase 24 U/L 0-35 Not Available [facility] (Lab) [address] [place], [address], 07/05/2022 14:05:28 07/06/19 23 07/05/2022 COMPR EHENS GALE METAB OLIC PANEL aspartate aminotransfe rase 30 U/L 15-37 Not Available [facility] (Lab) [address] [place], [address], 07/05/2022 14:05:28 07/06/19 23 07/05/2022 COMPR EHENS GALE METAB OLIC PANEL bilirubin, total 0.50 mg/dL 0.20-1 .30 Not Available [facility] (Lab) [address] [place], [address], 07/05/2022 14:05:28 07/06/19 23 07/05/2022 COMPR EHENS GALE METAB OLIC PANEL calcium 9.3 mg/dL 8.4-10 .2 Not Available [facility] (Lab) [address] [place], [address], 07/05/2022 14:05:28 07/06/19 23 07/05/2022 COMPR EHENS GALE METAB OLIC PANEL total protein 6.8 g/dL 6.3-8. 2 Not Available [facility] (Lab) [address] [place], [address], 07/05/2022 14:05:28 07/06/19 23 07/05/2022 COMPR EHENS GALE METAB OLIC PANEL albumin 4.4 g/dL 3.0-4. 4 Not Available [facility] (Lab) [address] [place], [address], 07/05/2022 14:05:28 07/06/19 23 07/05/2022 COMPR EHENS GALE METAB OLIC PANEL globulin 2.4 g/dL 2.6-4. 2 low Not Available [facility] (Lab) [address] [place], [address], 07/05/2022 14:05:28 07/06/19 23 07/05/2022 COMPR EHENS GALE METAB OLIC PANEL A/G ratio 1.8 ratio 1.0-2. 0 Not Available [facility] (Lab) [address] [place], [address], 07/05/2022 14:05:28 07/06/19 23 07/05/2022 TSH W/REF KIMI FT4 TSH with reflex free T4 1.930 uIU/m L 0.465- 4.680 Not Available [facility] (Lab) [address] [place], [address], 07/05/2022 14:13:40 07/06/19 23 07/05/2022 VITAM IN D 25-HY DROXY vd25oh 45.7 NG/mL 30-100 Vitam in D Statu s: Defic ient: <20 ng/mL Insuf ficie nt: 20-29 ng/mL Suffi cient : 30-10 0 ng/mL Not Available [facility] (Lab) [address] [place], [address], 07/05/2022 14:22:30 07/22/19 23 07/21/2022 , echoc ardio gram No observ ation record ed. [facility] [address], [place], [address], 08/01/2022 11:28:03 12/06/19 23 12/05/2022 MRI, pancr eas, w/wo contr ast No observ ation record ed. [facility] [address] [facility] [address], [place], [address], 12/06/2022 14:58:17 12/30/19 23 MAMMO , scree ce, digit al, bilat eral [facility] [address] [place], [place] [id number] Patien t Name: LOLIS LAW Access ion #: [id number] Sex: F : 1945 4 9 Dictat ed By: Linda Serrano Attend ing Physic melisa: MARLEY OCONNOR Orderi ng Physic melisa: MARLEY OCONNOR Exam Date: Exam Name: MG DIGITA L [...] at 2022 11:09: 26 AM Page [address] (Imaging) [address] [place], [address], 01/01/2023 16:45:09 02/09/20 23 MAMMO , scree ce, digit al, bilat eral [facility] [address] [place] [address] Patien t Name: LOLIS LAW Access ion #: [id number] Sex: F : 1945 4 9 Dictat ed By: Linda Serrano Attend ing Physic melisa: MARLEY OCONNOR Orderi ng Physic melisa: MARLEY OCONNOR Exam Date: 2022 09:40 AM Exam Name: [...] of malign karen. Recomm end annual mammog harpre. BIRADS : 1 - Negati ve Electr onical ly Signed by: Linda Serrano at 2022 11:09: 26 AM Page 1 [facility] (Imaging) [address] [place], [address], 02/12/2023 11:27:58 04/17/19 25 04/17/2024 MAMMO , scree ce, digit al, bilat eral No observ ation record ed. [address] [place], [address], 04/21/2024 11:56:48 Result Notes Documentation Provider Name and Address Organization Details Recorded Time Mammo, Screening, Digital, Bilateral : [facility] [address] [place] [address] Patient Name: KEYLA LAW Sex: F : 1945 Dictated By: Linda Serrano Attending Physician: MARLEY OCONNOR Ordering Physician: MARLEY OCONNOR Exam Date: Exam Name: DIGITAL DANILO BILAT SCREEN Admitting Diagnosis(es): CLINICAL HISTORY: Screening COMPARISON STUDY: 12/28/2021; 12/13/2020 TECHNIQUE: Using a full field digital 2D mammography unit CC and MLO views of both breasts are performed. FINDINGS: BREAST COMPOSITION: There are scattered areas of fibroglandular density in the bilateral breasts. No suspicious masses, architectural distortion, asymmetries or suspicious calcifications in both breasts. IMPRESSION: No evidence of malignancy. Recommend annual mammogram. BIRADS: 1 - Negative Page 1 MANDY Mcdonald, Robinhood 01/01/2023 16:45:09 Mammo, Screening, Digital, Bilateral : [place] [id number] Patient Name: KEYLA LAW Sex: F : 1945 Dictated By: Linda Serrano Attending Physician: MARLEY OCONNOR Ordering Physician: MARLEY OCONNOR Exam Date: 12/29/2022 09:40 AM Exam Name: DIGITAL DANILO BILAT SCREEN Admitting Diagnosis(es): CLINICAL HISTORY: Screening COMPARISON STUDY: 12/28/2021; 12/13/2020 TECHNIQUE: Using a full field digital 2D mammography unit CC and MLO views of both breasts are performed. FINDINGS: BREAST COMPOSITION: There are scattered areas of fibroglandular density in the bilateral breasts. No suspicious masses, architectural distortion, asymmetries or suspicious calcifications in both breasts. IMPRESSION: No evidence of malignancy. Recommend annual mammogram. BIRADS: 1 - Negative Page 1 MANDY Mcdonald, Robinhood 02/12/2023 11:27:58 Problems Name Problem SNOMED Code Status Onset Date Resolution Date Notes Provider Name and Address Organization Details Recorded Time Essential hypertensi on 96122846 Active 2022 Shaina Santos APRN [address], [address], [place], [address] , [place] [facility] 4 11:00:15 Hyperlipid emia [id number] Active 2022 Shaina Santos APRN [address], [address], [place], [address] , [place] [facility] 4 11:00:25 Mass of pancreas 422520217 Active 2022 Not Available [facility] 3 21:48:22 Kidney stone 79242112 Active 2022 Shaina Santos APRN [address], [address], [place], [address] , [place] - [facility] 4 11:00:40 Impacted cerumen in right ear 3331934206250 103 Active 2022 Not Available [facility] 3 21:48:22 Osteopenia 438109368 Active 2022 Shaina Santos APRN [address], [address], [place], [address] , [place] [facility] 4 11:00:27 Heart murmur 61312458 Active 2022 Shaina Santos APRN [address], [address], [place], [address] , [place] [facility] 4 11:00:18 Calcificat ion of mitral valve 287624345 Active 2022 Shaina Santos APRN [address], [address], [place], [address] , [place] [facility] 4 11:00:12 Glaucoma 54437922 Active 2023 Shaina Santos APRN [address], [address], [place], [address] , [employer] 10:56:55 Problem Notes None recorded. Procedures Surgical History Date Name Laterality Status Provider Name and Address Organization Details Recorded Time 12/19/19 24 Medicare Wellness CPT Code, subsequent completed Shaina Santos APRN [address], [address], [place], [address], [employer] 12/15/2023 14:26:45 04/05/19 24 Most Recent Mammogram completed Juana Guerra RN DC [employer] [facility] [employer] 06/24/2024 14:03:31 11/16/19 23 Medicare Wellness CPT Code, subsequent completed BETHANIE Bryant [address], [address], [place], [address], [employer] [facility] [employer] 11/15/2022 13:16:15 01/12/20 21 Date of Last Colonoscopy completed Not Available [facility] 05/03/2022 23:28:56 12/14/19 21 Most Recent Bone Density completed Not Available [facility] 05/03/2022 23:28:56 procedure on wrist completed Not Available [facility] 05/03/2022 23:28:57 Tubal Ligation completed Not Available [facility] 05/03/2022 23:28:57 Imaging Results None recorded. Procedure Notes None recorded. Medical Equipment None Reported. 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 [facility] 12/18 completed Not Available Not Available Not Available pravastatin 20 mg tablet TAKE 1 TABLET BY MOUTH EVERY DAY active Not Available Not Available No t Available hydrochlorot hiazide 12.5 mg tablet TAKE 1 TABLET BY MOUTH EVERY DAY active Not Available Not Available No t Available Vitals Date Recorded Body height Heart rate Oxygen saturation Oxygen saturation in Arterial blood by Pulse oximetry Body mass index (BMI) Body weight Body temperature Systolic And Diastolic Provider Name and Address Organization Details Last Updated DateTime 4 157.48 cm 67 /min 97 % 97 % 29.3 kg/m2 86177.7 8 g 97 [degF] 118/74 mm[Hg] Kirill Henderson CMA [facility] [employer] [facility] 4 10:57:17 Date Recorded Body height Body mass index (BMI) Body weight Body temperature Heart rate Oxygen saturation Oxygen saturation in Arterial blood by Pulse oximetry Systolic And Diastolic Provider Name and Address Organization Details Last Updated DateTime 3 157.48 cm 28.7 kg/m2 67301 g 98 [degF] 68 /min 97 % 97 % 130/78 mm[Hg] Reina Guerra [facility] [employer] [facility] 3 10:46:38 Date Recorded Body height Body mass index (BMI) Body weight Body temperature Heart rate Respiratory rate Oxygen saturation Oxygen saturation in Arterial blood by Pulse oximetry Systolic And Diastolic Provider Name and Address Organization Details Last Updated DateTime 5 157.48 cm 28.7 kg/m2 17769.3 5 g 98 [degF] 77 /min 20 /min 97 % 97 % 150/68 mm[Hg] Juana Guerra RN [facility] [employer] [facility] 5 14:01:47 Date Recorded Body height Body mass index (BMI) Body weight Body temperature Heart rate Oxygen saturation Oxygen saturation in Arterial blood by Pulse oximetry Systolic And Diastolic Provider Name and Address Organization Details Last Updated DateTime 3 157.48 cm 28.9 kg/m2 68118.5 9 g 97.9 [degF] 62 /min 96 % 96 % 114/76 mm[Hg] Reina Guerra, [facility] [employer] [facility] 3 10:59:27 Date Recorded Body height Body mass index (BMI) Body weight Body temperature Heart rate Oxygen saturation Oxygen saturation in Arterial blood by Pulse oximetry Systolic And Diastolic Provider Name and Address Organization Details Last Updated DateTime 4 157.48 cm 28.9 kg/m2 58396.5 9 g 97 [degF] 63 /min 98 % 98 % 128/64 mm[Hg] Sarah Villarreal MA [place] [facility] 4 10:33:44 Social History Question Answer Notes LastModified by Organization Details LastModified Time Tobacco Smoking Status Never Smoker Not Available [employer] 05/03/2022 23:28:27 Do You Have An Advance Directive? Yes Patient Stated She Needs To Check Hers To See If It Needs Updated. MIGRATION.030 [id number] Information not available 05/03/2022 Are You Blind Or Do You Have Difficulty Seeing? No MIGRATION.030 [id number] Information not available 05/03/2022 What Is Your Level Of Caffeine Consumption? Moderate MIGRATION.030 850724 Information not available 05/03/2022 In The 14 Days Before Symptom Onset, Have You Had Close Contact With A Laboratory-confi rmed COVID-19 While That Case Was Ill? No MIGRATION.030 724568 Information not available 05/03/2022 In The 14 Days Before Symptom Onset, Have You Had Close Contact With A Person Who Is Under Investigation For COVID-19 While That Person Was Ill? No MIGRATION.030 769354 Information not available 05/03/2022 Are You Deaf Or Do You Have Serious Difficulty Hearing? No MIGRATION.030 788057 Information not available 05/03/2022 What Type Of Diet Are You Following? REGULAR MIGRATION.030 843070 Information not available 05/03/2022 What Is The Highest Grade Or Level Of School You Have Completed Or The Highest Degree You Have Received? [id number] MIGRATION.300 912620 Information not available 05/03/2022 Have There Been Any Changes To Your Family Or Social Situation? No MIGRATION.030 394477 Information not available 05/03/2022 What Is The Fluoride Status Of Your Home? Unknown MIGRATION.030 827008 Information not available 05/03/2022 Are There Any Guns Present In Your Home? No MIGRATION.030 380557 Information not available 05/03/2022 Do You Use Insect Repellent Routinely? No MIGRATION.030 003032 Information not available 05/03/2022 Where Do You Live? [place]LevelHouse MIGRATION.030 085925 Information not available 05/03/2022 Advance Directive- Providers Has Reviewed Directive And Consents To Follow Them (insert Provider Name With Any Objectives In Notes Field) Yes Information not available 06/24/2024 Presence Of Domestic Violence No Information not available 06/24/2024 Guns Present In The Home? No Information not available 06/24/2024 Are You Able To Care For Yourself? Yes Information not available 06/24/2024 Are You Blind Or Do Yo Have Difficulty Seeing? No Wears Glasses Information not available 06/24/2024 Are You Deaf Or Do You Have Serious Difficulty Hearing? No Information not available 06/24/2024 General Stress Level? Moderate Information not available 06/24/2024 Live Alone Of With Others? Alone Information not available 06/24/2024 What Was The Date Of Your Most Recent Tobacco Screening? 12/19/2023 Information not available 12/19/2023 How Many Children Do You Have? 3 Information not available 12/19/2023 Do You Have Any Pets? No MIGRATION.0301 [id number] Information not available 05/03/2022 What Is Your Relationship Status? MIGRATION.0301 [id number] Information not available 05/03/2022 Do You Use Your Seat Belt Or Car Seat Routinely? Yes MIGRATION.0301 421026 Information not available 05/03/2022 Do You Have Smoke And Carbon Monoxide Detectors In Your Home? Yes MIGRATION.0301 954082 Information not available 05/03/2022 Are You Passively Exposed To Smoke? No MIGRATION.0301 630620 Information not available 05/03/2022 Are There Any Smokers In Your House? No MIGRATION.0301 320468 Information not available 05/03/2022 Do You Participate In Social Media? Yes Information not available 06/24/2024 Do You Use Sunscreen Routinely? Yes MIGRATION.0301 042698 Information not available 05/03/2022 Has Tobacco Cessation Counseling Been Provided? No MIGRATION.0301 217575 Information not available 05/03/2022 Have You Recently Traveled Abroad? No MIGRATION.0301 613962 Information not available 05/03/2022 Do You Have Difficulty Walking Or Climbing Stairs? No MIGRATION.0301 734708 Information not available 05/03/2022 Do You Have Any Dietary Restrictions? No MIGRATION.0301 143723 Information not available 05/03/2022 Sex: Unknown Functional Status Question Answer Note LastModified by Organizat ion Details LastModified Time Do you use any illicit or recreational drugs? No MIGRATION.119382 3996 Information not available 05/03/2022 Do you or have you ever used any other forms of tobacco or nicotine? No MIGRATION.659361 3936 Information not available 05/03/2022 What is your level of alcohol consumption? None MIGRATION.147140 8963 Information not available 05/03/2022 Are you currently employed? No Retired [employer] Information not available 12/19/2023 Do you have transportation difficulties? No MIGRATION.059448 8339 Information not available 05/03/2022 Are you able to walk? YESWOREST MIGRATION.118432 5314 Information not available 05/03/2022 Do you have difficulty doing errands alone? No MIGRATION.206058 3425 Information not available 05/03/2022 Are you able to care for yourself? Yes MIGRATION.131165 6168 Information not available 05/03/2022 Do you have difficulty dressing or bathing? No MIGRATION.742191 7455 Information not available 05/03/2022 What is your exercise level? Moderate WALKING MIGRATION.745223 8538 Information not available 05/03/2022 Mental Status Question Answer Note LastModified by Organizat ion Details LastModified Time Do you feel stressed (tense, restless, nervous, or anxious, or unable to sleep at night)? [id number] MIGRATION.38216688 26 Information not available 05/03/2022 Do you have difficulty concentrating, remembering or making decisions? No MIGRATION.15643661 26 Information not available 05/03/2022 Family History Relationship Description Onset Age of this Age Resolved Age Notes LastModified by Organization Details LastModified Time Mother Malignant tumor of breast MIGRATION.961 [id number] Not available 05/03/2022 23:28:59 Unspecified Relation Family history of stroke MOTHER S SIDE OF FAMILY MIGRATION.029 [id number] Not available 05/03/2022 23:28:59 Medical History Condition Response NERVE DISEASE N BLINDNESS N RHEUMATIC FEVER N KIDNEY STONES N BLADDER PROBLEMS N MRSA N OTHER # 1 N POLIO N LUNG DISEASE/DISORDER N HISTORY OF DRUG ABUSE N RADIATION / CHEMOTHERAPY N COPD N Other # 2 N BLOOD DISEASES N EAR OR HEARING PROBLEMS N MUMPS N SHINGLES N DEPRESSION (INCLUDING POST ) N BOWEL PROBLEMS N STROKE/TIA N ULCERS N BENIGN PROSTATIC [...] Y Deficiency N TOURETTE'S N ANXIETY DISORDER Y BLOOD TRANSFUSION N ANEMIA/BLOOD DISORDER N CHRONIC EAR INFECTIONS N BRONCHITIS N TUBERCULOSIS N GLAUCOMA N FOOT PROBLEM N DIVERTICULITIS N SLEEP APNEA N CHICKENPOX N INFECTIOUS DISEASE N PROSTATE N HEART ARRHYTHMIA N INSOMNIA N HIGH CHOLESTEROL / HYPERLIPIDEMIA Y HYPERTHYROIDISM N EYE PROBLEMS N EDEMA N CHRONIC PAIN SYNDROME N [...] N ALZHEIMER'S DISEASE N Brain Problems N HERPES N DEMENTIA N SEIZURES/EPILEPSY N HEADACHES/MIGRAINES N VASCULAR DISEASE N PACEMAKER N Blood Disorder N DIZZINESS N KIDNEY DISEASE N HEART DISEASE/HEART PROBLEMS N MULTIPLE SCLEROSIS N CARDIAC ARRHYTHMIA N CANCER: SPECIFY N Gall Stones N ATRIAL FIBRILLATION N PULMONARY EMBOLISM N AUTOIMMUNE DISEASE N Gynecological History Statement/Question Response How many live births 43 Date of Last Mammogram 12/13/2020 Date of Last Mammogram Date of Last Colonoscopy 01/11/2021 Most Recent Bone Density 12/13/2020 Date of LMP Date of Last Pap Date of Last Pap Smear Current Control Method Menopause Most Recent Mammogram 04/05/2023 Obstetrics History GPAL:G 4 P 4 0 0 4 Type Value Multiple Births 0 Full Term 4 Induced 0 Spontaneous 0 Premature 0 Living 4 Ectopics 0 Total 4 Immunizations Vaccine Type Date Status Note Provider Nam e and Address Organization Details Recorded Time Influenza, split virus, trivalent, preservative completed Not Available [facility] 02/08/2023 21:48:23 Influenza, high-dose, quadrivalent, PF 2 completed Shaina Santos APRN [address], [address], [place], [address], [employer] [facility] [email or web address] [facility] 12/15/2023 14:24:45 Influenza, adjuvanted, quadrivalent, PF 1 completed Shaina Santos APRN [address], [address], [place], [address], [employer] [facility] [email or web address] [facility] 12/15/2023 14:24:45 COVID-19, mRNA, LNP-S, PF, 100 mcg/0.5mL dose or 50 mcg/0.25mL dose 2 completed Shaina Santos APRN [address], [address], [place], [address], [employer] [facility] [email or web address] [facility] 12/15/2023 14:24:45 COVID-19, mRNA, LNP-S, PF, 100 mcg/0.5mL dose or 50 mcg/0.25mL dose 1 completed Shaina Santos APRN [address], [address], [place], [address], [employer] [facility] [employer] 12/15/2023 14:24:45 Influenza, adjuvanted, quadrivalent, PF 3 completed Shaina Santos APRN [address], [address], [place], [address], [employer] [facility] [email or web address] [facility] 12/15/2023 14:24:55 Pneumococcal Conjugate, unspecified formulation 8 completed Shaina Santos APRN [address], [address], [place], [address], [employer] [facility] [employer] 12/19/2023 10:45:04 Influenza, high-dose, trivalent, PF 4 completed SYLWIA Acuna, DC [employer] [facility] [employer] 12/19/2023 11:06:07 Past Encounters Encounter ID Performer Location Encounter Start Date Encounter Closed Date Diagnosis/Indication Diagnosis SNOMED-CT Code Diagnosis ICD10 Code Diagnosis Note [id number] Alexandra moore MD [facility] Internal Med [place] [address] [place] [address] [place] [address] 10/13/2020 00:00:00 10/13/2020 15:36:11 [id number] [facility]_Histor ic[facility] General Surgery [address] [place] [address] 11/29/2020 00:00:00 11/29/2020 11:31:53 [id number] Alexandra moore MD [facility] Internal Med [place] [address] [place] [address] [place] [address] 04/13/2021 00:00:00 04/13/2021 13:32:00 [id number] Alexandra moore MD [facility] Internal Med [place] [address] [place] [address] y , [place] [address] 10/26/2021 00:00:00 10/26/2021 13:18:44 [id number] Alexandra moore MD [facility] Internal Med [place] [address] [place] [address] [place] [address] 01/18/2022 00:00:00 01/18/2022 10:50:53 [id number] Alexandra moore MD [facility] Internal Med [place] [address] [place] [address] [place] [address] 06/21/2022 10:38:47 06/21/2022 11:09:53 Essential hypertension 08994252 I10 on enalapril, HCTZ Hyperlipidemia 12453828 E78.5 on pravastati n Mass of pancreas 9051656 00 K86.89 now following oncology- Dr. Saha, he has also consulted with surgerynow getting follow ups and MRIs every 6 months with oncology- next in Dec Osteopenia 939230668 M85 .80 on OTC vit d and calciumwei ght bearing exercise recommende d Impacted c erumen in right ear 0966036237 814225 H61.21 get appt with ENT for removal Kidney stone 59726714 N2 0.0 follows urology- Dr. Martinez Heart murmur 95863775 R0 1.1 get echowill likely need cardiology referral after we get resultER precaution s [id number] [facility] [place] [address] [place] [address] 11/15/2022 10:47:34 11/15/2022 11:23:39 Essential hypertension 21165276 I10 on enalapril, HCTZ Hyperlipidemia 23558261 E78.5 on pravastati n Mass of pancreas 5245780 00 K86.89 now following oncology- Dr. Saha, he has also consulted with surgerynow getting follow ups and MRIs every 6 months with oncology- next in Dec Kidney stone 42172656 N2 0.0 follows urology- Dr. Martinez Osteopenia 656405693 M85 .80 on OTC vit d and calciumwei ght bearing exercise recommende d Impacted c erumen in right ear 7562290608 972531 H61.21 now following ENT Heart murmur 96686322 R0 1.1 s/pdid see cardiology at [facility]- no more follow up needed Screening mammography 24 916611 Z12.31 Renewal of prescription 583337162 Z76.0 Adult [facility] th examination 957532863 Z00.00 Screening for disorder 146558222 Z13.9 [id number] Alexandra moore MD [facility] Internal Med [place] [facility] [place] [address] [address] 06/13/2023 10:42:39 06/13/2023 11:11:55 Essential hypertension 70058368 I10 Hyperlipidemia 83316126 E78.5 Renewal of prescription 035654549 Z76.0 [id number] Alexandra moore MD [facility] Internal Med [place] [address] [place] [address] 12/19/2023 10:23:07 12/19/2023 11:07:25 Adult health examination 431416936 Z00.00 Screening for disorder 152033748 Z13.9 Hepatitis C screening 41 4707467 Z11.59 Renewal of prescription 283153763 Z76.0 Administra tion of influenza vaccine 52786631 Z23 [id number] GINGER Chambers [facility] [address] [address] 06/24/2024 13:53:11 06/24/2024 14:14:40 Essential hypertension 99894328 I10 Well controlled , will FU in 6 months Hyperlipidemia 01520409 E78.5 Labs will check in December at [facility] Calcificat ion of mitral valve 174358936 I34.81 Followed by cardiology , asymptomat ic Health Concerns Section Related Observation LastModified by Organization [employer] LastModified Time None Recorded Concern Status LastModified by Organization Details LastModified Time None Recorded Advance Directives Directive Y: Patient stated she needs to check hers to see if it needs updated. Payers Insurance Date Sequence Insurance Name Policy Number Policy Lopez Covered Member ID Lopez Member ID Guarantor Name 06/24/2024 1 [place] Keyla Law [id number] Keyla Law 06/24/2024 2 [facility] (MEDICARE SUPPLEMENT) Keyla Law [id number] Keyla Law Notes Date Note Type Note Provider Name [...] to handle that without any symptoms either. BETHANIE Bryant [address], [address], [place], [address], [employer] 06/21/2022 11:22:53 11/15/2022 text/html Keyla jo today for follow-up. She is also due for Medicare annual wellness visit. Blood pressures been well controlled at home. She has not had any side effects with her meds. She did see the manager floor. He felt everything was okay and that [...] due next month. BETHANIE Bryant [address], [address], [place], [address], [employer] 11/15/2022 13:21:22 06/13/2023 text/html Keyla jo today to establish care. She states that seen a manager floor 1 times for heart murmur and he felt that she was fine. She states that she has had her pneumococcal vaccine. I recommended her to have the shingles vaccine also. She states that she does not follow up with urology as she believes that she has passed the kidney stone. No illness or injuries noted since last visit.Denis roper presents today for follow-up. She is also due for Medicare annual wellness visit. Blood pressures been well controlled at home. She has not had any side effects with her meds. She did see the manager floor. He felt everything was okay and that [...] Mammogram is due next month. Shaina Santos, RUG RENOVATOR [address], [address], [place], [address], [employer] 06/13/2023 11:09:39 12/19/2023 text/html Keyla sams ts today for Medicare Annual Wellness exam and 6 month follow up. She denies any illness and issues. 06/13/2023Keyla presents today to establish care. She states that seen a manager floor 1 times for heart murmur and he [...] with her meds. She did see the manager floor. He felt everything was okay and that [...] scan. Mammogram is due next month. Shaina Hodgener, RUG RENOVATOR [address] [facility], [address], [place], [address], [employer] 12/19/2023 17:13:08 06/24/2024 text/html Tete Hypertension, well controlled. She is taking enalapril, HCTZ Hyperlipidemia well controlled with pravastatin, has not had labs in a couple of years. Sees Dr. Saha for growth of pancrease - stable Does get occasional SOB on exertion, has Mammogram: 04/17/24WWE: not interestedColonosc opy: 2020 Shikha Blackman, GINGER [address], [address], [place], [address], [employer] 06/24/2024 14:15:32 OBGyn Episode No OBEpisode recorded.
--- OUTSIDE RECORDS SUMMARY | 2024-09-10 09:44 | XMS_ITS | Clinical Summary ---
Author Organization [facility] José Luis Sommers Address [address] [place] [address] Care Team Providers Care Breaker Mechanic Name Role Phone Alexandra Luna MD Primary [...] Encounters Date Type Department Care Team Description 08/20/2024 External Device Data STL ABSTRACTION Provider, Abstract 08/19/2024 External Device Data STL ABSTRACTION Provider, Abstract 07/24/2024 External Device Data STL ABSTRACTION Provider, Abstract 07/23/2024 External Device Data STL ABSTRACTION Provider, Abstract 07/22/2024 External Device Data STL ABSTRACTION Provider, Abstract [...] 9:58 AM CDT Height 157.5 cm (5' 2) 11/18/2021 12:14 PM CDT Body Mass Index 28.53 11/18/2021 12:14 PM CDT Plan of Treatment Upcoming Encounters Date Type Department Care Team (Late st Contact Info) Description 09/10/2024 10:15 AM CDT Office Visit [facility] Oncology and Hematology [facility] [address] [facility] [address] [place] [address] Lasha Saha MD [address] [facility] [address] [place] [address] Health Maintenance Due Date Last Done Comments DTAP/TDAP/TD VACCINES (1 - Tdap) 1964 Traditional Medicare (ACO) Annual Wellness Visit 09/06 PNEUMOCOCCAL VACCINE 50+ YEARS (1 of 1 - PCV) 09/06/18 97 ZOSTER VACCINE (1 of 2) 1996 OSTEOPOROSIS SCREENING 09/07/2011 RSV VACCINE (60+ or ) (1 - 1-dose 75+ series) 2021 INFLUENZA VACCINE (#1) 2024 12/05/2020 COLORECTAL SCREENING Discontinued 01/10/2021 Colorectal Cancer Screening Discontinued FIT-DNA Q 3 years Discontinued FIT/FOBT Q 1 year Discontinued Flex Sig/CT Colonography Q 5 years Discontinued Insurance MEDICARE PART A AND B [facility] [place] [address] Care Teams Breaker Mechanic Relationship Specialty Start Date End Date Alexandra Luna MD PCP - General Internal Medicine 12/11/22
[2024-09-10 10:01] LABS: Hematocrit 38.9 % (37.0-47.0); Hemoglobin 13.0 g/dL (12.0-15.0); Immature Granulocyte Percent A 0.6 % (0-0.5); Lymphocytes Absolute Auto 1.25 K/mm3 (0.9-3.2); Mean Corpuscular HGB Conc 33.4 g/dl (32-36); Mean Corpuscular Hemoglobin 29.9 pg (26-34); Mean Corpuscular Volume 89.4 fl (80-100); Nucleated Red Blood Cells Absolute Auto 0.000 K/mm3 (0.0-0.012); Nucleated Red Blood Cells Perc 0.0 % (0.0-0.2); Platelet Count Result 240 k/mm3 (150-375); Red Blood Count 4.35 M/mm3 (4.2-5.4); White Blood Count 4.8 K/mm3 (4.5-10.0)
[2024-09-10 10:11] LABS: Blood Urea Nitrogen 20 mg/dL (8-26); Carbon Dioxide 27 mmol/L (22-30); Chloride 100 mmol/L (98-109); Estimated Glomerular Filt Rate > 60; Glucose 103 mg/dL (70-105); Ionized Calcium (POC) 1.19 mmol/L (1.11-1.31); Potassium 4.0 mmol/L (3.5-4.9); Sodium 139 mmol/L (138-146)
[2024-09-10 11:59] LABS: Alanine Aminotransferase 25 U/L (6-35); Albumin Level 4.3 g/dL (3.5-5.1); Alkaline Phosphatase 83 U/L (38-126); Anion Gap 8 mmol/L (4-12); Aspartate Amino Transferase 53 U/L (14-36); Bilirubin,Total 0.5 mg/dL (0.2-1.3); Blood Urea Nitrogen 20 mg/dL (7-17); Calcium 9.3 mg/dL (8.4-10.2); Carbon Dioxide 29 mmol/L (22-30); Chloride 101 mmol/L (98-107); Estimated Glomerular Filt Rate > 60; Glucose 102 mg/dL (65-110); Potassium 4.1 mmol/L (3.4-5.0); Sodium 138 mmol/L (137-145); Total Protein 7.2 g/dL (6.3-8.2)
== END 2024-09-10 09:39 | disposition home or self-care (01) ==
PROVIDERS: PCP Nurse Practitioner Family; Visit Provider Internal Medicine Hematology & Oncology
DX: K86.2 Cyst of pancreas (principal)
CPT/HCPCS: 36415; 80047; 80053; 85025